=== PATIENT | female | born 1950 | race Caucasian/White ===

== ENCOUNTER 2017-04-07 10:28 | Inpatient (IN) | payer OTHER ==
[2017-03-06 09:58] VITALS: BMI 37.0
--- NOTE | 2017-03-06 10:37 | PAT Medication Instructions ---
Service Date Mar 06, 2017. Current Home Medication List Cyanocobalamin (Vitamin B12 500MCG), 1,000 MCG PO QAM Hydrochlorothiazide (Hctz), 25 MG PO QAM Krill Oil (Megared [place]-3 Krill Oil 500 mg), 1 TAB PO NOON Metoprolol Succ (Toprol Xl) (Toprol-Xl), 50 MG PO NOON Multiple Vitamins W/ Minerals (Hair Skin and Nails Formu), 1 TAB PO TID Naproxen (Aleve), 440 MG PO NOON Omeprazole (Prilosec), 20 MG PO QAM Simvastatin (Zocor), 5 MG PO QPM [Vitamin D], 400 UNITS PO QAM Medication Instructions For Your Scheduled Surgery - Check with surgeon for instructions: Naproxen (Aleve), 440 MG PO NOON - Hold the following medications 2 weeks prior to surgery: Krill Oil (Megared [place]-3 Krill Oil 500 mg), 1 TAB PO NOON - Continue as directed: Metoprolol Succ (Toprol Xl) (Toprol-Xl), 50 MG PO NOON - Hold the following medications the morning of surgery: [Vitamin D], 400 UNITS PO QAM Multiple Vitamins W/ Minerals (Hair Skin and Nails Formu), 1 TAB PO TID Cyanocobalamin (Vitamin B12 500MCG), 1,000 MCG PO QAM Hydrochlorothiazide (Hctz), 25 MG PO QAM - Take the following medications the morning of surgery with a sip of water: Omeprazole (Prilosec), 20 MG PO QAM - Take the following medications as scheduled the night before surgery: Simvastatin (Zocor), 5 MG PO QPM If you have any questions please call us at [phone] or [phone] or [phone]
[2017-03-06 12:07] LABS: BASO % 0.6 %; BASO ABS # 0.03 K/uL (0-0.2); COMPLETE YES; EOS % 4.5 %; HEMATOCRIT 45.3 % (37-47); IG% 0.2 %; LYMPH % 34.5 %; LYMPH ABS # 1.67 K/uL (1.2-3.4); MEAN CELL VOLUME 83.7 fL (80-100); MEAN CORPUSCULAR HEMOGLOBIN 27.2 pg (25-34); MEAN CORPUSCULAR HGB CONC 32.5 g/dl (32-36); MEAN PLATELET VOLUME 10.2 fL (7.4-10.4); MONO % 9.3 %; NEUT % 50.9 %; PLATELET COUNT 171 K/uL (130-400); RED BLOOD COUNT 5.41 M/uL (4.2-5.4); WHITE BLOOD COUNT 4.84 K/uL (4.8-10.8)
[2017-03-06 12:09] LABS: PROTHROMBIN TIME (PATIENT) 10.8 SECONDS (9.0-12.0)
[2017-03-06 12:21] LABS: BLOOD UREA NITROGEN 20 mg/dl (7-18); BUN/CREATININE RATIO 23.7 (10-20); CARBON DIOXIDE 34 mmol/L (21-32); CHLORIDE 104 mmol/L (98-107); CREATININE 0.85 mg/dl (0.60-1.20); GLUCOSE 88 mg/dl (70-99); SODIUM 142 mmol/L (136-145)
[2017-03-06 12:22] LABS: C-REACTIVE PROTEIN < 0.29 mg/dl (0-0.29)
--- NOTE | 2017-03-27 22:31 | HISTORY & PHYSICAL EXAMINATION ---
DATE OF ADMISSION: 04/07/2017 CHIEF COMPLAINT: Left knee pain. HISTORY OF PRESENT ILLNESS: A 67-year-old female from [place] who presents for surgical treatment of her left knee. She has a long history of left knee pain and discomfort. She had her left knee scope done in [place] about 10 years ago. It helped for a brief period of time. Over the past several years, she has developed increased pain and discomfort in this left knee. 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 She has been through extensive conservative treatment. She had steroid shots as well as oral medicines. Pain has become more debilitating and limiting her ability to work. She has trouble standing for any prolonged period of time. It is global pain both medially and laterally. She would like to have her left knee replaced. Of note, the patient has a history of right hip replacement done by Dr. Wolff in 2012, complicated by superficial MRSA infection. She was treated with I&D and antibiotics without recurrence. It is still relatively well. PAST MEDICAL HISTORY: 1. Elevated cholesterol. 2. Hypertension. 3. Gastroesophageal reflux disease. 4. Obesity with a BMI of 37.2. PREVIOUS SURGERIES: Include: 1. Left knee scoped 10 years ago. 2. Carpal tunnel release. 3. Colon resection. 4. Cholecystectomy. 5. Total hip placement done in . 6. Laparotomy. ALLERGIES: TO PENICILLIN WHICH CAUSES YEAST INFECTION. NO TRUE ANAPHYLACTIC REACTION. CURRENT MEDICINES: Include: 1. Hydrochlorothiazide 25 mg a day. 2. Metoprolol 50 mg a day. 3. Omeprazole 20 mg. 4. Simvastatin 5 mg. 5. Vitamin D 400 international units a day. 6. Vitamin B12 1000 mcg a day. 7. MegaRed 500 mg once a day. 8. Aleve 2 tablets twice a day. SOCIAL HISTORY: Significant for a 67-year-old female patient from [place]. She is . Three children. Does not drink. Works as a POLITICAL ANALYST. FAMILY HISTORY: Significant for heart disease and diabetes. REVIEW OF SYSTEMS: Negative for diabetes. Denies any chest pain or shortness of breath. No history of DVT or PE. She does have this history of questionable MRSA infection. PHYSICAL EXAMINATION: GENERAL: Reveals a healthy, pleasant middle-aged female, looks to be in pretty good health. HEENT: Benign. NECK: Supple, no lymphadenopathy. LUNGS: Clear to auscultation. HEART: Regular rate and rhythm. ABDOMEN: Soft, nontender, nondistended. EXTREMITIES: Grossly neurovascularly intact except as follows: Examination of the left knee reveals the patient walks with a waddling gait. She clearly limps on her left side. She has got varus alignment to her knees. She has varus thrust with weightbearing. Range of motion is 5-120. Motor strength is intact and equal to the opposite side. No instability. No pain with hip motion. NEUROLOGIC: She is neurologically intact. X-RAYS: X-rays of the left knee reveal advanced left knee DJD. She has got complete loss of her medial joint space. She has tibiofemoral subluxation and subchondral sclerosis. ASSESSMENT: A 67-year-old female status post right total hip replacement complicated by a possible MRSA infection, with advanced left knee degenerative joint disease. She has failed conservative treatment and would like to have her left knee replaced. PLAN: We are going to take her to the operating room and do left total knee replacement. The risks and benefits of this procedure were explained to the patient including but not limited to DVT, PE, , infection, neurological injury, vascular injury, bleeding problem, pain, limited range of motion, stiffness, failure to relieve symptoms, incomplete relief of symptoms, need for further surgery in the future, fracture, leg length inequality, nerve palsy, persistent pain, need for blood transfusion, etc. The patient understands and desires to proceed. Informed consent was obtained. We did get a sed rate and C-reactive protein and those are both normal. Due to the history of MRSA infection, we will likely give her Ancef as well as vancomycin preoperatively. We may put the vancomycin in her cement as well due to her large size and increased risk of infection. I did talk about holding Aleve 10 days preop and make sure she takes the metoprolol. She takes that at night, she will take it the night before surgery. We will give her Ancef preoperatively as her reaction to penicillin is not true anaphylaxis. As far as discharge plans, she is planning to be discharged home using some home health.
[2017-04-07] VITALS (8 sets, daily range): BP systolic 106–156; BP diastolic 65–97; PULSE 58–75; TEMP 36.2–36.9; O2SAT 95–100; Ht 160 cm; Wt 93.0 kg
[~2017-04-07] VITALS: Ht 160 cm; Wt 93.0 kg
[~2017-04-07 10:28] MED LIST: ACETAMINOPHEN 500 MG TAB PO SCH; BUPIVACAINE 0.25% 30 ML VIAL ONE; BUPIVACAINE 0.5 % 5 MG/1 ML PF 10ML VIAL ONE; BUPIVACAINE LIPOSOME 266 MG, BUPIVACAINE/EPINEPHRINE INJ 50 ML, SODIUM CHLORIDE 0.9% PF... INFIL SCH; CYAN500T13 PO; FAMOTIDINE 20 MG TAB PO SCH; GABAPENTIN 300 MG CAP PO SCH; HYDR25TA4 PO; KRIL1CAP18 PO; LACTATED RINGER'S 1000ML IV SCH; LACTATED RINGER'S 500 ML IV SCH; METO50TA7 PO; METOCLOPRAMIDE HCL 10 MG TAB PO SCH; MULT-1018 PO; NAPR1TAB9 PO; PRLSR20 PO; SCOPOLAMINE 1.5 MG TDSY TD SCH; SIMV5TAB2 PO; VANCOMYCIN INJ 1,500 MG in SODIUM CHLORIDE 0.9% 500ML 500 ML IV SCH; VITAMIN D PO
[2017-04-07] MEDS ORDERED: HYDR-5688 PO (11:05)
--- NOTE | 2017-04-07 11:19 | History & Physical Bridge Note ---
H&P Re-Evaluation Bridge Note: I have examined the patient, reviewed the History & Physical and in the interval since the performance of the History & Physical I have noted the following changes of clinical significance: No changes noted
[2017-04-07] MEDS ORDERED: MIDAZOLAM HCL 1 MG/ML 2ML VIAL ONE (12:12)
[2017-04-07] MEDS ORDERED: SODIUM CHLORIDE 0.9% PF 50 ML VIAL ONE (13:25)
[2017-04-07] MEDS ORDERED: BUPIVACAINE LIPOSOME 1/3% 266 MG/20 ML VIAL INFIL ONE (13:25)
[2017-04-07] MEDS ORDERED: BACITRACIN 50000 UNIT VIAL ONE (13:25)
[2017-04-07] MEDS ORDERED: BUPIVACAINE/EPINEPHRINE 0.25% 1:200,000 30 ML VIAL ONE (13:25)
[2017-04-07] MEDS ORDERED: VANCOMYCIN HCL 1000MG/20ML VIAL ONE (13:26)
[2017-04-07] MEDS ORDERED: HYDROmorphone INJ 2 MG/ML SYR/VIAL IV PRN (13:30)
[2017-04-07] MEDS ORDERED: KETOROLAC TROMETHAMINE 30 MG/ML VIAL IV. PRN (13:30)
[2017-04-07] MEDS ORDERED: ATROPINE SULFATE 0.1 MG/ML 5ML SYR IV PRN (13:30)
[2017-04-07] MEDS ORDERED: PHENYLEPHRINE 100MCG/ML 5ML SYR IV PRN (13:30)
[2017-04-07] MEDS ORDERED: EpHEDrine SULFATE INJ 50 MG/ML AMP IV PRN (13:30)
[2017-04-07] MEDS ORDERED: ONDANSETRON INJ 2 MG/ML 2 ML VIAL IV PRN ×2 (13:30→16:00)
[2017-04-07] MEDS ORDERED: CEFAZOLIN SOD 1 GM VIAL ONE (13:59)
[2017-04-07] MEDS ORDERED: TRANEXAMIC ACID AMP 1,000 MG in NSS 100ML IV SCH (14:00)
[2017-04-07] MEDS ORDERED: NURSING VERBAL MED ORDER ONE (14:00)
[2017-04-07] MEDS ORDERED: LIDOCAINE HCL 2% 2 ML VIAL (20MG/ML) ONE (14:00)
[2017-04-07] MEDS ORDERED: PROPOFOL IV EMULSION 10 MG/ML 20 ML VIAL IV ONE (14:00)
--- NOTE | 2017-04-07 15:31 | [facility] Post Operative Brief Note ---
Immediate Operative Summary Operative Date Apr 07, 2017. Pre-Operative Diagnosis Left Knee Degenerative Joint Disease Post-Operative Diagnosis Same as preop Procedure(s) Performed Left Total Knee Arthroplasty Surgeon Dr. Nunn Morning Show Host Surgeon(s) Fabian Valdez PA-C Estimated Blood Loss 50ml Findings Left Knee DJD Fluids (cc crystalloids) 1500 cc Specimens A. Left Knee Bone and Tissue Drains None Anesthesia Spinal Complication(s) None Disposition Recovery Room / PACU
[2017-04-07] MEDS ORDERED: HYDROmorphone INJ 0.5 MG/0.5 ML SYR IV PRN (15:45)
[2017-04-07] MEDS ORDERED: METOCLOPRAMIDE HCL INJ 5 MG/ML 2 ML VIAL IV PRN (16:00)
[2017-04-07] MEDS: CHECK SCOPOLAMINE PATCH PLACEMENT SCH ×2 (16:00→23:45)
[2017-04-07] MEDS ORDERED: DiphenhydrAMINE HCL 50 MG/ML VIAL IV PRN (16:00)
[2017-04-07] MEDS ORDERED: MAGNESIUM HYDROXIDE SUSP 30 ML UDC PO PRN (16:00)
[2017-04-07] MEDS ORDERED: ZOLPIDEM TARTRATE 5 MG TAB PO PRN (16:00)
[2017-04-07] MEDS ORDERED: BISACODYL 10 MG SUPP PR PRN (16:00)
[2017-04-07] MEDS ORDERED: SILVER SULFADIAZINE 1% CR 50 GM JAR EXT PRN (16:00)
[2017-04-07] MEDS ORDERED: ALUMINUM/MAGNESIUM/SIMETH (MAALOX MAX) 30 ML UDC PO PRN (16:00)
--- NOTE | 2017-04-07 16:09 | DIAGNOSTIC IMAGING REPORT ---
LEFT KNEE 1 OR 2 VIEWS ROUTINE CLINICAL HISTORY: Postoperative study. Degenerative arthritis. COMPARISON: 02/13/2017 DISCUSSION: There are postsurgical changes of a total left knee arthroplasty and patellar resurfacing. The femoral and tibial components appear well seated. There are overlying skin carmen. There is air in the soft tissues consistent with the history of recent surgery. IMPRESSION: Postsurgical changes of a total left knee arthroplasty. Electronically signed by: Yoel Paige M.D. 04/07/2017 4:08 PM Dictated Date/Time: 04/07/2017 4:07 PM
--- NOTE | 2017-04-07 16:10 | Anesthesiology Progress Note ---
Anesthesia Post Op Note Date & Time Apr 07, 2017 at 16:10 Vital Signs Pain Intensity: 0 Vital Signs Past 12 Hours Date Time Temp Pulse Resp B/P (MAP) Pulse Ox O2 Delivery O2 Flow Rate FiO2 04/07/17 16:05 36.4 64 14 113/69 99 Nasal Cannula 2 04/07/17 15:55 63 14 120/63 98 Nasal Cannula 2 04/07/17 15:45 64 14 108/71 96 Nasal Cannula 2 04/07/17 15:37 36.2 63 19 109/66 98 Nasal Cannula 2 04/07/17 11:16 36.8 64 18 156/97 97 Room Air Notes Mental Status: alert / awake / arousable, participated in evaluation Pt Amnestic to Procedure: Yes Nausea / Vomiting: adequately controlled Pain: adequately controlled Airway Patency, RR, SpO2: stable & adequate BP & HR: stable & adequate Hydration State: stable & adequate Anesthetic Complications: no major complications apparent
[2017-04-07] MEDS: OXYCODONE HCL IR 5 MG TAB (IMMEDIATE RELEASE) PO PRN (17:09)
[2017-04-07] MEDS: D5W AND 1/2NSS + 20MEQ KCL 1,000 ML IV SCH (17:38)
[2017-04-07] MEDS: FERROUS GLUCONATE 324 MG TAB PO SCH (17:39)
[2017-04-07] MEDS: KETOROLAC TROMETHAMINE 15 MG/ML VIAL IV. SCH ×2 (17:39→23:46)
[2017-04-07] MEDS: TAPENTADOL ER 50 MG TABCR PO SCH (20:32)
[2017-04-07] MEDS: CEFAZOLIN IV 2,000 MG in DEXTROSE 5% 50ML 50 ML IV SCH (20:32)
[2017-04-07] MEDS: SIMVASTATIN 5 MG TAB PO SCH (20:33)
[2017-04-07] MEDS: ASPIRIN 325 MG ECTAB PO SCH (20:34)
[2017-04-07] MEDS: DOCUSATE SODIUM 100 MG CAP PO SCH (20:36)
[2017-04-07] MEDS: SENNA 8.6 MG TAB PO SCH (20:36)
[2017-04-07] MEDS ORDERED: TRANEXAMIC ACID INJ 1,000 MG in SODIUM CHLORIDE 0.9% 100ML 100 ML IV ONE (21:30)
[2017-04-07] MEDS: ACETAMINOPHEN 500 MG TAB PO SCH (21:48)
[2017-04-08] MEDS ORDERED: VANCOMYCIN INJ 1,400 MG in SODIUM CHLORIDE 0.9% 500ML 500 ML IV ONE (03:00)
[2017-04-08 03:13] VITALS: BP 105/62; PULSE 71; TEMP 36.9; O2SAT 94
[2017-04-08] MEDS: CEFAZOLIN IV 2,000 MG in DEXTROSE 5% 50ML 50 ML IV SCH (03:56)
[2017-04-08] MEDS: D5W AND 1/2NSS + 20MEQ KCL 1,000 ML IV SCH ×2 (03:56→12:37)
[2017-04-08 05:55] LABS: HEMATOCRIT 37.9 % (37-47); MEAN CELL VOLUME 82.9 fL (80-100); MEAN CORPUSCULAR HEMOGLOBIN 27.1 pg (25-34); MEAN CORPUSCULAR HGB CONC 32.7 g/dl (32-36); MEAN PLATELET VOLUME 9.9 fL (7.4-10.4); PLATELET COUNT 134 K/uL (130-400); RED BLOOD COUNT 4.57 M/uL (4.2-5.4); WHITE BLOOD COUNT 5.93 K/uL (4.8-10.8)
[2017-04-08 06:28] LABS: BUN/CREATININE RATIO 11.8 (10-20); CALCIUM 7.8 mg/dl (8.5-10.1); CREATININE 1.1 mg/dl (0.60-1.20); POTASSIUM 3.5 mmol/L (3.5-5.1)
[2017-04-08] MEDS: ACETAMINOPHEN 500 MG TAB PO SCH ×3 (06:36→21:49)
[2017-04-08] MEDS: KETOROLAC TROMETHAMINE 15 MG/ML VIAL IV. SCH ×3 (06:36→18:34)
[2017-04-08] MEDS: CHECK SCOPOLAMINE PATCH PLACEMENT SCH ×2 (08:00→16:00)
[2017-04-08 08:09] VITALS: BP 114/70; PULSE 68; TEMP 36.9; O2SAT 94
--- NOTE | 2017-04-08 08:17 | Progress Note ---
Orthopedic SOAP Note Subjective Date of Service: Apr 08, 2017. Post OP Day: POD #1 Left TKR Reports: feeling well, pain controlled w PO medications Additional Notes: No chest pain or shortness of breath. Pain controlled. Objective calves soft nontender, N/V intact, capillary refill less than 2 sec., dressing C /D/I, A&O x3, toes mobile, CMS intact Date Time Temp Pulse Resp B/P (MAP) Pulse Ox O2 Delivery O2 Flow Rate FiO2 04/08/17 08:09 36.9 68 18 114/70 (85) 94 Room Air 04/08/17 03:13 36.9 71 16 105/62 (76) 94 Room Air 04/07/17 23:45 Room Air 04/07/17 23:23 36.9 73 16 109/67 (81) 95 Room Air 04/07/17 20:23 96 Room Air 04/07/17 19:25 36.8 69 18 111/66 (81) 98 Nasal Cannula 2.0 04/07/17 18:17 36.7 75 18 110/67 (81) 97 Nasal Cannula 2.0 04/07/17 17:18 36.5 58 18 120/75 (90) 100 Nasal Cannula 2.0 04/07/17 16:45 36.6 67 16 109/70 (83) 100 Nasal Cannula 2.0 04/07/17 16:15 98 Nasal Cannula 2.0 04/07/17 16:15 36.2 62 16 106/65 (79) 98 Nasal Cannula 2.0 04/07/17 16:15 98 Nasal Cannula 2.0 04/07/17 16:05 36.4 64 14 113/69 99 Nasal Cannula 2 04/07/17 15:55 63 14 120/63 98 Nasal Cannula 2 04/07/17 15:45 64 14 108/71 96 Nasal Cannula 2 04/07/17 15:37 36.2 63 19 109/66 98 Nasal Cannula 2 04/07/17 11:16 36.8 64 18 156/97 97 Room Air Laboratory Results 24 Hours: Test 04/08/17 05:00 Hematocrit 37.9 % Hemoglobin 12.4 g/dL Assessment POD #1 - Left TKR doing well. Pain controlled and N/V intact. Plan 1) PT/OT - LEft TKR Protocol 2) Pain control - doing well with current pain regimine 3) DVT Prophylaxis - thigh high TEDs + SCDs + ECASA 4) Disposition - plan to d/c to home with home health once adequately recovered.
[2017-04-08] MEDS ORDERED: MULTIVITAMIN TAB PO SCH (09:00)
[2017-04-08] MEDS ORDERED: PANTOprazole SOD 40 MG TAB PO SCH (09:00)
[2017-04-08] MEDS: FERROUS GLUCONATE 324 MG TAB PO SCH ×3 (09:22→18:34)
[2017-04-08] MEDS: ASPIRIN 325 MG ECTAB PO SCH ×2 (09:22→21:48)
[2017-04-08] MEDS: CEROVITE ADV FORMULA TAB PO SCH (09:23)
[2017-04-08] MEDS: HYDROCHLOROTHIAZIDE 25 MG TAB PO SCH (09:23)
[2017-04-08] MEDS: TAPENTADOL ER 50 MG TABCR PO SCH ×2 (09:23→21:47)
[2017-04-08] MEDS: METOPROLOL SUCC 50MG EXT REL TAB PO SCH (09:24)
[2017-04-08] MEDS: PANTOprazole SOD 40 MG TAB PO SCH (09:24)
[2017-04-08] MEDS: CHOLECALCIFEROL 400 INTER.UNIT TAB PO SCH (09:25)
[2017-04-08] MEDS: CYANOCOBALAMIN 500 MCG TAB (VIT B-12) PO SCH (09:25)
[2017-04-08] MEDS: DOCUSATE SODIUM 100 MG CAP PO SCH ×2 (09:25→21:47)
[2017-04-08] MEDS: OXYCODONE HCL IR 5 MG TAB (IMMEDIATE RELEASE) PO PRN (09:26)
[2017-04-08 12:00] VITALS: BP 119/72; PULSE 64; TEMP 36.7; O2SAT 97
[2017-04-08 13:24] VITALS: BP 110/74; PULSE 88; O2SAT 98
[2017-04-08 15:09] VITALS: BP 101/63; PULSE 67; TEMP 36.8; O2SAT 96
[2017-04-08] MEDS ORDERED: RXC5 PO (21:28)
[2017-04-08] MEDS ORDERED: ASPEC325 PO (21:28)
[2017-04-08] MEDS ORDERED: ACET-24 PO (21:28)
[2017-04-08] MEDS ORDERED: MORP-157 PO (21:28)
--- NOTE | 2017-04-08 21:31 | Discharge Instructions ---
Discharge Instructions Date of Service Apr 08, 2017. Admission Reason for Admission: Left Knee Degenerative Joint Disease Discharge Discharge Diagnosis / Problem: Left Knee Replacement Discharge Goals Goal(s): Decrease discomfort, Improve function, Increase independence, Improve disease control, Therapeutic intervention Activity Recommendations Activity Limitations: per Instructions/Follow-up section Weightbearing Status: Left weightbearing . Instructions / Follow-Up Instructions / Follow-Up ACTIVITY RECOMMENDATIONS: Physical Therapy: * You will go to physical therapy three times each week for four to six weeks after your surgery in order to regain your knee range of motion and to retrain your knee to work properly. * It is just as important to make sure you are getting your knee perfectly straight as it is to regain your knee bend. * Taking a pain pill an hour before therapy can help you have a more productive and comfortable therapy session. Home Exercise: * You were shown a series of exercises (heel props, heel slides, etc.) in the hospital. Do these exercises three to four times each day including the exercises you were shown in physical therapy. Walking: * Get up and walk several times each day. For the first four weeks, try not to stand or walk for more than one hour at a time. If you do stand or walk for more than one hour, you will not hurt anything, but your knee and leg will likely swell. * As you feel comfortable, you may change from the walker or crutches to a cane and then to independent walking. MEDICATIONS: New Medicine: * You will likely be taking one or more of these medications: 1. MS Contin - A long-acting pain medication. Take 1 tablet twice a day for the first ten days to decrease your baseline level of pain. 2. Oxycodone - A quick and shorter-acting pain medication. Take one to two tablets every four to six hours to lessen your pain. 3. Aspirin - Thins your blood to lessen the chance of forming a blood clot. * The most common side effects of pain medicine and iron are nausea and constipation. If nausea or constipation is too much of a problem or if you have any questions about your new medicines or doses, call [facility] at [phone]. We will try to help you manage these issues. VERY IMPORTANT TO READ AND REVIEW" Pain: * The immediate post-operative period after knee replacement surgery is often quite painful. * You are given a prescription for pain medicine. You should take it, as directed, when you need it, especially before physical therapy and before going to bed. Pain that interferes with sleep is very common and can last several months. * You will likely need pain medicine for the first four to six weeks. It will not stop all of the pain. The pain will lessen and as you feel better, you may change to milder pain medicine such as Tylenol. * The most common side effects of pain medicine are nausea and constipation, so don't take more than you need. SPECIAL CARE INSTRUCTIONS: TEDs/Elastic Stockings: * The white elastic stockings help limit swelling and prevent blood clots from forming in your legs. The more you wear them, the more they work. * Wear them for six weeks after knee replacement surgery and four weeks after partial knee replacement. Prevention of Infection: * Take antibiotics one hour before any dental cleaning, dental work, urological procedure, gastrointestinal procedure or any invasive surgery in order to prevent your new joint from getting infected. * You may get the antibiotics from the doctor performing the procedure or you may call our office at before and we will call in a prescription to the pharmacy of your choice. Things to Watch For: * Drainage from the incision site that occurs more than one week after your surgery. * Severely increased knee/leg pain or swelling. * Increased redness at the incision site. * Fever above 102 degrees Fahrenheit. * Unusual chest pain or shortness of breath. * Unusual pain or burning with urination. Call [facility] at with any of the above problems or if you have any questions about your medicines or recovery. FOLLOW UP VISIT: Make an appointment to see your doctor for approximately two weeks after surgery for a progress check and staple removal by calling the office at . Current Hospital Diet Patient's current hospital diet: Regular Diet Discharge Diet Recommended Diet: Regular Diet Procedures Procedures Performed: Left Total Knee Arthroplasty Pending Studies Studies pending at discharge: no Medical Emergencies . Who to Call and When: Medical Emergencies: If at any time you feel your situation is an emergency, please call [phone] immediately. . Non-Emergent Contact Non-Emergency issues call your: Surgeon . "Provider Documentation" section prepared by Gabriel Nunn. . VTE Core Measure Inpt VTE Proph given/why not?: Other Anticoagulation, T.E.D. Stockings, SCD's
[2017-04-08] MEDS: SENNA 8.6 MG TAB PO SCH (21:47)
[2017-04-08] MEDS: SIMVASTATIN 5 MG TAB PO SCH (21:47)
[2017-04-08 22:55] VITALS: BP 101/62; PULSE 67; TEMP 36.6; O2SAT 96
[2017-04-09] MEDS: CHECK SCOPOLAMINE PATCH PLACEMENT SCH
[2017-04-09] MEDS: KETOROLAC TROMETHAMINE 15 MG/ML VIAL IV. SCH ×2 (00:46→05:40)
[2017-04-09] MEDS: ACETAMINOPHEN 500 MG TAB PO SCH (05:40)
[2017-04-09 06:15] VITALS: BP 132/77; PULSE 67; TEMP 36.9; O2SAT 97
--- NOTE | 2017-04-09 08:40 | Progress Note ---
Orthopedic SOAP Note Subjective Date of Service: Apr 09, 2017. Post OP Day: POD #2 - Left TKR Reports: feeling well, pain controlled w PO medications Objective calves soft nontender, N/V intact, dressing C/D/I, toes mobile, CMS intact Small amount of bloody drainage on dressing. Date Time Temp Pulse Resp B/P (MAP) Pulse Ox O2 Delivery O2 Flow Rate FiO2 04/09/17 06:15 36.9 67 16 132/77 (95) 97 Room Air 04/08/17 22:55 36.6 67 14 101/62 (75) 96 Room Air 04/08/17 20:00 Room Air 04/08/17 15:09 36.8 67 18 101/63 (76) 96 Room Air 04/08/17 13:24 88 98 04/08/17 12:00 36.7 64 18 119/72 (88) 97 Room Air 04/08/17 09:15 Room Air Assessment POD #2 - Left TKR doing well. Pain controlled and N/V intact. Plan 1) PT/OT - LEft TKR Protocol 2) Pain control - doing well with current pain regimine 3) DVT Prophylaxis - thigh high TEDs + SCDs + ECASA 4) Disposition - plan to d/c to home with home health once adequately recovered.
[2017-04-09] MEDS: CHOLECALCIFEROL 400 INTER.UNIT TAB PO SCH (09:28)
[2017-04-09] MEDS: CYANOCOBALAMIN 500 MCG TAB (VIT B-12) PO SCH (09:28)
[2017-04-09] MEDS: PANTOprazole SOD 40 MG TAB PO SCH (09:29)
[2017-04-09] MEDS: TAPENTADOL ER 50 MG TABCR PO SCH (09:29)
[2017-04-09] MEDS: METOPROLOL SUCC 50MG EXT REL TAB PO SCH (09:29)
[2017-04-09] MEDS: ASPIRIN 325 MG ECTAB PO SCH (09:29)
[2017-04-09] MEDS: FERROUS GLUCONATE 324 MG TAB PO SCH (09:29)
[2017-04-09] MEDS: CEROVITE ADV FORMULA TAB PO SCH (09:29)
[2017-04-09] MEDS: DOCUSATE SODIUM 100 MG CAP PO SCH (09:29)
[2017-04-09] MEDS: HYDROCHLOROTHIAZIDE 25 MG TAB PO SCH (09:29)
[2017-04-09 09:45] VITALS: BP 132/77; PULSE 67; TEMP 36.9; O2SAT 97
[2017-04-09] MEDS: OXYCODONE HCL IR 5 MG TAB (IMMEDIATE RELEASE) PO PRN (09:58)
--- NOTE | 2017-04-11 15:31 | Discharge Summary ---
Orthopedic Discharge Summary Admission Date/Reason Apr 07, 2017 at 11:02 Left Knee Degenerative Joint Disease. Discharge Date/Disposition Apr 09, 2017 Home with services Diagnosis Principal Diagnosis: LEFT KNEE DJD Secondary Diagnoses/Problems: 1. Elevated cholesterol. 2. Hypertension. 3. Gastroesophageal reflux disease. 4. Obesity with a BMI of 37.2. Procedure(s) Performed LEFT TKA Medication Reconciliation New Medications: Morphine Cont Rel (Ms Contin) 15 Mg Tab 15 MG PO Q12 for 10 Days, #20 TAB Take for 10 days to lessen pain. Acetaminophen (Sb Non-Aspirin Extra Stre) 500 Mg Tab 1000 MG PO Q8H for 30 Days, #180 TAB Take 3 times per day to lessen pain. Aspirin (Aspirin) 325 Mg Ectab 325 MG PO BID for 45 Days, #90 Take to prevent blood clots. Oxycodone HCl (Oxycodone HCl) 5 Mg Tab 5-10 MG PO Q6H PRN for Pain for 30 Days, #60 TAB Take as needed for Pain. Continued Medications: Cyanocobalamin (Vitamin B12 500MCG) 500 Mcg Tab 1000 MCG PO QAM, TAB Hydrochlorothiazide (Hctz) 25 Mg Tab 25 MG PO QAM, TAB Krill Oil (Megared [place]-3 Krill Oil 500 mg) 1 Cap Cap 1 TAB PO NOON Metoprolol Succ (Toprol Xl) (Toprol-Xl) 50 Mg Tabcr 50 MG PO NOON, #30 TAB Multiple Vitamins W/ Minerals (Hair Skin and Nails Formu) 1 Tab Tab 1 TAB PO TID Naproxen (Aleve) 220 Mg Tab 440 MG PO NOON, TAB Omeprazole (Prilosec) 20 Mg Capcr 20 MG PO QAM, CAP Simvastatin (Zocor) 5 Mg Tab 5 MG PO QPM, TAB [Vitamin D] () 400 UNITS PO QAM Discontinued Medications: Hydrocodone/Acetaminophen 5MG/325MG (Industry 5MG/325MG) Tab 1 TAB PO TID PRN for Pain for 30 Days, #90 TAB PRN PAIN Admission Physical Exam As per Admitting History & Physical. Hospital Course ELIAN WAS ADMITTED 03/08/17 AND UNDERWENT TKA. SHE TOLERATED THE PROCEDURE WELL. NO COMPLICATIONS. SHE WAS TRANSFERRED TO THE PACU POST OP AND LATER TO THE ORTHOPEDIC FLOOR FOR FURTHER CARE. SHE WAS GIVEN ANCEF FOR ANTIBIOTIC PROPHYLAXIS. LILI'S, SCD'S, AND ASPIRIN FOR DVT PROPHYLAXIS. HER H/H AND VITAL SIGNS WERE MONITORED DURING HER HOSPITAL STAY AND REMAINED STABLE. SHE DID NOT REQUIRE ANY BLOOD TRANSFUSION. THERE WERE NO COMPLICATIONS. BY POD #2 SHE WAS TOLERATING A GENERAL DIET. PAIN WAS CONTROLLED WITH ORAL PAIN MEDICINES. SHE WAS PARTICIPATING IN PT AND HAD NO S/S OF DVT. ON POD#2 SHE WAS DISCHARGED HOME WITH HOME HEALTH. GIVEN PRINTED DISCHARGE INSTRUCTIONS WELL PRESCRIPTIONS ABOVE. CONTINUE PT, WBAT. LILI'S AND ASPIRIN FOR DVT PROPHYLAXIS. FOLLOW UP IN 10-12 DAYS OR SOONER IF THERE ARE PROBLEMS OR CONCERNS. Discharge Instructions Please refer to the electronic Patient Visit Report (Discharge Instructions) for additional information.
--- NOTE | 2017-04-12 10:18 | OPERATIVE REPORT ---
PREOPERATIVE DIAGNOSIS: Left knee DJD. POSTOPERATIVE DIAGNOSIS: Same. SURGEON: Dr. Gabriel Nunn. TWINE WINDER: Fabian Valdez PA-C. PROCEDURE PERFORMED: Left cemented posterior stabilized total knee arthroplasty. COMPLICATIONS: None. ESTIMATED BLOOD LOSS: 50 cc. FLUID REPLACEMENT: 1500 cc crystalloid fluid replacement. ANESTHESIA: Spinal with adductor canal block. DRAINS: None. SPECIMEN: Left knee sent for pathology. TOURNIQUET TIME: 62 minutes at 300 mmHg. OPERATIVE INDICATIONS: Patient is a 67-year-old female who has had a 10-plus year history of left knee pain and discomfort. She has been through extensive conservative treatment without adequate relief. Really starting to limit her function. She elected to proceed with a left total knee arthroplasty. Of note, the patient had a history of a right total hip replacement done in [place]. There was some understanding on her part that she had an MRSA infection postoperatively and underwent and I&D and recovered nicely. As a result we gave her both Ancef and Vancomycin preoperatively. OPERATIVE FINDINGS: Operative findings revealed advanced left knee DJD. She had grade 4 [id number] disease of the medial femoral condyle and medial tibial plateau with eburnation of the medial femoral condyle as well as the anterior medial tibial plateau. She had a fixed varus deformity to her knee and moderate to large effusion. The lateral and patellofemoral compartments were fairly well preserved. OPERATIVE IMPLANTS: Operative implants consisted of: 1. A Biomet Vanguard size 65 left posterior stabilized femoral component. 2. A Biomet size 67 tibial tray. 3. 10 mm posterior stabilized polyethylene insert. 4. 28 x 8 all poly patella. OPERATIVE PROCEDURE: Patient was taken to the operating room and identified and placed on the operating table in the supine position. All contact areas were appropriately padded. IV antibiotics were provided by the anesthesia team. A spinal anesthetic and adductor canal block had been provided in the holding area. Neil catheter was placed in a sterile fashion. The left thigh tourniquet was then placed and the left lower extremity was prepped and draped in the usual sterile fashion. The left leg was elevated and exsanguinated with Esmarch and tourniquet was placed at 300 mmHg. An anterior approach to the left knee was then performed through a longitudinal incision and centered over the patella. Sharp dissection was carried through the subcutaneous tissues down to the level of the extensor mechanism. A medial parapatellar arthrotomy incision was made. Some subperiosteal dissection was carried out medially. The fat pad was resected from beneath the patellar tendon. The lateral patellofemoral ligament was released. The patella was everted and the knee was flexed. The osteophytes were taken off the distal femur. The ACL and PCL were released from the distal femur and the tibia subluxated anteriorly. The external tibial alignment jig was then placed in the anterior face of the tibia and adjusted 16 mm medially. Proximal tibial cut was made to move out 1 mm of bone from the most deficient aspect of the medial tibial plateau. There was quite a bit of tibial plateau wear. Some osteophytes were taken off medial and posteromedially. The tibia was sized to a size 67. Attention was then drawn to the femur. The distal femur was entered with a sharp drill bit. The intramedullary canal was suctioned. A left 5 degree valgus cutting guide was placed. The distal femoral cutting block was pinned in place. The distal femoral cut was made to take an additional 3 mm of bone off the distal femur. The femur was then sized to a size 65. We did downsize this slightly. The AP cutting block was pinned parallel to the epicondylar axis which was 5 degrees of external rotation. The anterior cut, anterior chamfer cut, posterior cut, and posterior chamfer cuts were made. Boxcutting guide was placed and adjusted slightly lateral and boxcut was made. The knee was flexed. The remnants of the medial and lateral menisci were excised. The osteophytes were taken off the posterior aspect of the femur. Trial femoral component was placed. The tibial tray was pinned to maximum external rotation and drilled with stem punch. We used the great defect in the proximal tibia for the tibial tray. The knee was trialed and a 10 mm insert fit most appropriately. Attention was then drawn to the patella. The patella was cleaned of all soft tissues. Patellar thickness measured 22 mm in thickness. It was cut down to 13. It was sized to a size 28 patella. Lug holes were drilled for a 28 patella. The lateral ostephyte was removed. Patellar button was placed. The knee was taken through range of motion. The patella tracked relatively well with no-thumbs test. There was some slight tilt to the patella. I elected to accept this. All trial components were removed. A bone plug was placed in the distal femur to eliminate blood loss. A double batch of Palacos-G cement was mixed. I did add an additional gram of Vancomycin due to her history of MRSA infection in the past. A left size 65 posterior stabilized femoral component, size 67 tibial tray, a 10 mm posterior stabilized polyethylene insert, and a 28 x 8 all poly patella were then cemented into place. The knee was brought out into full extension until cement hardened. A final cement check was then performed. Pericapsular tissues were then injected with a total of 100 cc of combination of 20 cc of Exparel, 30 cc of normal saline, 50 cc of 0.25% Marcaine with epinephrine. Patient did receive 1 gram of tranexamic acid. The tourniquet was then let down for a final tourniquet time of 62 minutes. Hemostasis was assured with the use of electrocautery. The extensor mechanism was then closed with a combination of #1 PDS suture and #1 Vicryl suture in a [id number] fashion. The extensor mechanism was checked and found to be intact. The subcutaneous tissues were then closed with 2-0 Dexon suture in a buried interrupted fashion. Skin was closed with skin carmen. Leg was then cleaned and dried and sterile dressing of Xeroform, 4 x 4s, sterile cast padding and an Lalo bandage were applied. The patient was then transferred to the recovery room in stable condition. The patient tolerated the procedure well without complications. All needle and sponge counts were correct at the end of the operation. ADDENDUM: Preoperatively I gave this patient both Vancomycin and Ancef. We gave her the Vancomycin due to her questionable history of this previous MRSA infection. We also gave her Ancef to provide a more complete Gram-positive coverage.
== END 2017-04-09 10:53 | disposition home health service (06) | DRG 470 ==
LOC: C.ACU 10:28 → C.3E 11:02 → ENRESERV 15:59
PROVIDERS: ADMIT Orthopaedic Surgery Sports Medicine; ATTEND Orthopaedic Surgery Sports Medicine
PROC: 0SRD0J9 Replacement of Left Knee Joint with Synthetic Substitute, Cemented, Open Approach (ICD-10-PCS; principal; 2017-04-07 13:00)
DX: M17.12 Unilateral primary osteoarthritis, left knee (principal); E78.00 Pure hypercholesterolemia, unspecified; I10 Essential (primary) hypertension; K21.9 Gastro-esophageal reflux disease without esophagitis; E66.9 Obesity, unspecified; Z68.37 Body mass index [BMI] 37.0-37.9, adult; Z87.891 Personal history of nicotine dependence; Z86.14 Personal history of Methicillin resistant Staphylococcus aureus infection; Z96.641 Presence of right artificial hip joint; Z79.1 Long term (current) use of non-steroidal anti-inflammatories (NSAID); Z79.899 Other long term (current) drug therapy

== ENCOUNTER 2023-11-15 07:05 | Observation (INO) ==
--- NOTE | 2023-10-26 10:37 | PAT Medication Instructions ---
Medication Instructions Date of Service October 26, 2023 Home Medications cholecalciferol (vitamin D3) 25 mcg (1,000 unit) tablet (Vitamin D3) 25 mcg PO BID omeprazole 20 mg tablet,delayed release 20 mg PO QAM simvastatin 20 mg tablet 20 mg PO HS Lactobacillus rhamnosus GG 10 billion cell capsule (Culturelle) 1 cap PO QPM acetaminophen 500 mg tablet 1,000 mg PO BID PRN prn ammonium lactate 12 % topical cream 1 applic topical DAILY PRN aspirin 81 mg capsule 81 mg PO QAM celecoxib 100 mg capsule (Celebrex) 100 mg PO BID clotrimazole-betamethasone 1 %-0.05 % topical cream 1 applic topical BID PRN donepezil 5 mg tablet 5 mg PO HS duloxetine 30 mg capsule,delayed release 30 mg PO HS hydrochlorothiazide 25 mg tablet 25 mg PO QAM levothyroxine 125 mcg tablet 125 mcg PO QAM metformin 500 mg tablet 500 mg PO BID metoprolol succinate 50 mg tablet,extended release 24 hr 50 mg PO QPM multivitamin,min-ferrous fumarate 3.3 mg-folic 25 mcg-herb tablet (Hair, Skin and Nails Advanced) 1 tab PO QAM nystatin 100,000 unit/gram topical powder 1 applic topical DAILY PRN ASK your surgeon for instructions celecoxib 100 mg capsule (Celebrex) 100 mg PO BID STOP taking 2 weeks before surgery multivitamin,min-ferrous fumarate 3.3 mg-folic 25 mcg-herb tablet (Hair, Skin and Nails Advanced) 1 tab PO QAM STOP taking 24 hours before surgery ammonium lactate 12 % topical cream 1 applic topical DAILY PRN clotrimazole-betamethasone 1 %-0.05 % topical cream 1 applic topical BID PRN nystatin 100,000 unit/gram topical powder 1 applic topical DAILY PRN DO NOT take the morning of surgery cholecalciferol (vitamin D3) 25 mcg (1,000 unit) tablet (Vitamin D3) 25 mcg PO BID hydrochlorothiazide 25 mg tablet 25 mg PO QAM metformin 500 mg tablet 500 mg PO BID Take morning of surgery With a small sip of water, OTHERWISE NOTHING TO EAT OR DRINK AFTER MIDNIGHT: omeprazole 20 mg tablet,delayed release 20 mg PO QAM acetaminophen 500 mg tablet 1,000 mg PO BID PRN (if needed) aspirin 81 mg capsule 81 mg PO QAM (unless surgeon directed otherwise) levothyroxine 125 mcg tablet 125 mcg PO QAM Take evening before surgery simvastatin 20 mg tablet 20 mg PO HS Lactobacillus rhamnosus GG 10 billion cell capsule (Culturelle) 1 cap PO QPM acetaminophen 500 mg tablet 1,000 mg PO BID PRN (if needed) donepezil 5 mg tablet 5 mg PO HS duloxetine 30 mg capsule,delayed release 30 mg PO HS metformin 500 mg tablet 500 mg PO BID metoprolol succinate 50 mg tablet,extended release 24 hr 50 mg PO QPM Other Notes If you have any questions please call us at [phone] or [phone] or [phone] or [phone]
--- NOTE | 2023-10-30 11:37 | Anesthesiology Consultation ---
Date of Service October 30, 2023 Assessment & Plan (1) Encounter for pre-operative examination: - check BSG am DOS. - will request 10/26/23 Dr. Lisseth Cooper [facility] office note. patient will need pseudocholinesterase deficiency precautions OR notified. - Outpatient joint assessment: Patient is currently scheduled for inpatient pathway. If re-evaluated and patient/surgeon requests outpatient pathway, patient is not recommended candidate for outpatient joint program from anesthesia standpoint. Chart Review Chart Review: Pending: Refer to Additional Notes / Consult section and Patient seen in Pre Admission Testing Teaching & Discussion Pre-Anesthesia Teaching/Discussion Notes: Instructed NPO after midnight before surgery, except medications with 15 cc of water. Medication instructions provided according to the PAT guidelines. History Surgery Operation Date: 11/15/23 08:50 Proposed Procedures p Left Total Hip Arthroplasty - Gabriel Nunn MD Height/Weight Height: 5 ft 2.5 in Weight: 99.3 kg Allergies Allergy/AdvReac Type Severity Reaction Status Date / Time adhesive Allergy Unknown BLISTERS, Verified 10/26/23 08:21 IRRITATION Penicillins Allergy Unknown YEAST Verified 10/26/23 08:21 INFECTIONS Medications Home Medications Medication Instructions Recorded Confirmed Last Taken cholecalciferol (vitamin D3) 25 25 mcg PO BID ##0 03/06/17 10/26/23 Unknown mcg (1,000 unit) tablet (Vitamin D3) omeprazole 20 mg tablet,delayed 20 mg PO QAM #0 caps 03/06/17 10/26/23 Unknown release simvastatin 20 mg tablet 20 mg PO HS #0 tabs 03/06/17 10/26/23 Unknown Lactobacillus rhamnosus GG 10 1 cap PO QPM 10/26/23 10/26/23 Unknown billion cell capsule (Culturelle) acetaminophen 500 mg tablet 1,000 mg PO BID PRN prn 10/26/23 10/26/23 Unknown ammonium lactate 12 % topical cream 1 applic topical DAILY PRN prn 10/26/23 10/26/23 Unknown aspirin 81 mg capsule 81 mg PO QAM 10/26/23 10/26/23 Unknown celecoxib 100 mg capsule (Celebrex) 100 mg PO BID 10/26/23 10/26/23 Unknown clotrimazole-betamethasone 1 1 applic topical BID PRN prn 10/26/23 10/26/23 Unknown %-0.05 % topical cream donepezil 5 mg tablet 5 mg PO HS 10/26/23 10/26/23 Unknown duloxetine 30 mg capsule,delayed 30 mg PO HS 10/26/23 10/26/23 Unknown release hydrochlorothiazide 25 mg tablet 25 mg PO QAM 10/26/23 10/26/23 Unknown levothyroxine 125 mcg tablet 125 mcg PO QAM 10/26/23 10/26/23 Unknown metformin 500 mg tablet 500 mg PO BID 10/26/23 10/26/23 Unknown metoprolol succinate 50 mg 50 mg PO QPM 10/26/23 10/26/23 Unknown tablet,extended release 24 hr multivitamin,min-ferrous fumarate 1 tab PO QAM 10/26/23 10/26/23 Unknown 3.3 mg-folic 25 mcg-herb tablet (Hair, Skin and Nails Advanced) nystatin 100,000 unit/gram topical 1 applic topical DAILY PRN prn 10/26/23 10/26/23 Unknown powder amoxicillin 875 mg-potassium 1 tab PO BID 10/27/23 10/27/23 Unknown clavulanate 125 mg tablet fluconazole 100 mg tablet 100 mg PO DAILY 10/27/23 10/27/23 Unknown prednisone 10 mg tablets in a dose 10 mg PO BID 10/27/23 10/27/23 Unknown pack Past Medical History Medical History Acquired cystic kidney disease Depression Family history of pseudocholinesterase deficiency daughter Family history of reaction to anesthesia daughter with pseudocholinesterase deficiency; mother had PONV GERD (gastroesophageal reflux disease) controlled, stable per pt History of COVID-19 2019, CARRASCO-denies hospitalization-persistent occasional dyspnea on exertion and productive cough-denies change or worsening History of kidney stones x1, passed on own Hyperlipidemia Hypertension controlled, stable per pt Hypothyroidism MCKENNA (nonalcoholic steatohepatitis) Neuropathy Pancreas cyst Prediabetes on metformin Sinus infection dx 10/26/23 by pcp>on Augmentin, prednisone-reports symptoms improving now just experiencing nasal congestion-will complete medications 11/03/23. Sleep apnea non compliant with device, "can't use it" Patient denies h/o stroke, seizures, heart attack, heart failure, blood cl ots/DVTs or blood transfusions. Exercise / Class Metabolic Activity III < 4 Walking/Shop/Light housework (occasional dyspnea on exertion on flat surfaces since having COVID 2019-ambulates with cane-denies change or worsening; denies chest discomfort) Past Surgical History Surgical History H/O surgical removal of Bartholin’s gland cyst History of carpal tunnel release of both wrists History of cataract surgery bilateral History of cholecystectomy 2017 History of resection of small bowel 2000 bowel obstruction History of surgery vaginal repair/prolapsed bladder intervention per PCP records History of surgery of uterus prolapse History of thyroidectomy, subtotal 2020 History of total hip arthroplasty right, 2013 History of total knee replacement left, 2017 Past Anesthesia History No Hx of Anesthesia Complications and Pseudocholinesterase Deficiency History of PONV No Hx of PONV and No Hx of Motion Sickness Social History Smoking Status: Never smoker Do You Dip or Chew Tobacco: No Hx Alcohol Use: No Hx Substance Use: No substance use type: does not use Review of Systems Patient denies chest pain, shortness of breath, dyspnea on exertion, fever, chills, cough, wheezing, or palpitations. Physical Exam Vital Signs Vitals BP 146/86 P 70 TEMP 97.8 SP02 96% on RA RESP 18 Physical Patient resting comfortably in chair in no acute distress, alert and oriented, responding appropriately throughout visit Full cervical extension range of motion without pain TMD < 3 finger breadths Mallampati Score 3 Dentition: intact, denies chipped or loose teeth, caps/crowns, implants or bridges Lungs: normal respiratory effort. Good air movement, clear throughout to auscultation, no adventitious breath sounds Cardiac: regular rate and rhythm, no murmurs noted Carotid arteries: negative bruit bilat Lab Results Anesthesia Preop Results Results Anesthesia Widget: WBC 7.57 K/ul (4.8-10.8) 10/30/23 Hgb 14.2 g/dl (12.0-16.0) 10/30/23 Hct 44.1 % (37.0-47.0) 10/30/23 Plt 206 K/uL (130-400) 10/30/23 Na 137 mmol/L (136-145) 10/30/23 K 4.3 mmol/L (3.5-5.1) 10/30/23 Cl 101 mmol/L (98-107) 10/30/23 CO2 28 mmol/L (21-32) 10/30/23 BUN 17 mg/dl (6-23) 10/30/23 Creat 0.87 mg/dl (0.6-1.2) 10/30/23 Glucose Level 141 mg/dl (70-99(Fasting)) H 10/30/23 PT 11.4 Seconds (9.0-12.0) 10/30/23 PTT 25 Seconds (21-31) 10/30/23 INR 1.0 (0.9-1.1) 10/30/23 HA1c 6.2 % (4.5-5.6) H 10/30/23 Blood Type O Positive 10/30/23 Antibody Screen NEGATIVE 10/30/23 Testing Electrocardiogram Date: 10/30/23 NSR, rate 67 bpm Chest X-Ray Date: 10/30/23 No acute process. Stress Test Date: 09/20/22 Pharmacologic Normal study No evidence of ischemia or infarction Low risk MPI
--- NOTE | 2023-11-11 10:28 | History & Physical Report ---
Date of Service November 11, 2023 Assessment & Plan (1) Degenerative joint disease of left hip: 73-year-old female with a history of a right hip replacement as well as left knee replacement done in the past with advanced left hip arthritis. She has failed conservative measures. Temporary sponsor injection. She is ready to have her hip fixed. Plan: When taken to the operating do left total hip placed for the risks Mente this procedure were explained the patient include but not limited to DVT PE infection neurological and vascular bleeding palm pain limb range of motion sepsis fairly with symptoms incomplete relief of symptoms excetra. Patient understands and desires to proceed. Informed consent was obtained. As far as DVT prophylaxis we use aspirin twice a day along with teds and SCDs. She did have a relatively recent cough and recovering from some antibiotic management will need to make sure that is cleared out preoperatively. She is planned to be discharged home using [facility]. She will hold her metformin the morning of surgery. History of Present Illness Chief Complaint: . Left hip and leg pain. Primary Care Provider: Lisseth Cooper PA-C . Patient is a 73-year-old female referred by Fabian and Dr. Mcgrath for treatment of her left hip. She has history of a right hip replacement done 2013 or 2014 and the left knee replacement done by myself in 2017. She done pretty well with these replacements. Over the past year to year and a half she developed increased pain discomfort in her left hip and leg. She describes groin pain thigh pain rating down to her knee. She does have history of back problems and as well and followed by Dr. Rodriguez for that. She gets intermittent injections. She did have an intra-articular hip joint injection provided by Dr. Gallo helped her for about a week and that is about it. Pain is getting worse. She limps pretty much all day long gets worse as time goes on. She would like to have her hip fixed. Allergies Allergy/AdvReac Type Severity Reaction Status Date / Time adhesive Allergy Unknown BLISTERS, Verified 10/26/23 08:21 IRRITATION Penicillins Allergy Unknown YEAST Verified 10/26/23 08:21 INFECTIONS Home Medications Medication Instructions Recorded Confirmed Type cholecalciferol (vitamin D3) 25 25 mcg PO BID ##0 03/06/17 10/26/23 History mcg (1,000 unit) tablet (Vitamin D3) omeprazole 20 mg tablet,delayed 20 mg PO QAM #0 caps 03/06/17 10/26/23 History release simvastatin 20 mg tablet 20 mg PO HS #0 tabs 03/06/17 10/26/23 History Lactobacillus rhamnosus GG 10 1 cap PO QPM 10/26/23 10/26/23 History billion cell capsule (Culturelle) acetaminophen 500 mg tablet 1,000 mg PO BID PRN prn 10/26/23 10/26/23 History ammonium lactate 12 % topical cream 1 applic topical DAILY PRN prn 10/26/23 10/26/23 History aspirin 81 mg capsule 81 mg PO QAM 10/26/23 10/26/23 History celecoxib 100 mg capsule (Celebrex) 100 mg PO BID 10/26/23 10/26/23 History clotrimazole-betamethasone 1 1 applic topical BID PRN prn 10/26/23 10/26/23 History %-0.05 % topical cream donepezil 5 mg tablet 5 mg PO HS 10/26/23 10/26/23 History duloxetine 30 mg capsule,delayed 30 mg PO HS 10/26/23 10/26/23 History release hydrochlorothiazide 25 mg tablet 25 mg PO QAM 10/26/23 10/26/23 History levothyroxine 125 mcg tablet 125 mcg PO QAM 10/26/23 10/26/23 History metformin 500 mg tablet 500 mg PO BID 10/26/23 10/26/23 History metoprolol succinate 50 mg 50 mg PO QPM 10/26/23 10/26/23 History tablet,extended release 24 hr multivitamin,min-ferrous fumarate 1 tab PO QAM 10/26/23 10/26/23 History 3.3 mg-folic 25 mcg-herb tablet (Hair, Skin and Nails Advanced) nystatin 100,000 unit/gram topical 1 applic topical DAILY PRN prn 10/26/23 10/26/23 History powder amoxicillin 875 mg-potassium 1 tab PO BID 10/27/23 10/27/23 History clavulanate 125 mg tablet fluconazole 100 mg tablet 100 mg PO DAILY 10/27/23 10/27/23 History prednisone 10 mg tablets in a dose 10 mg PO BID 10/27/23 10/27/23 History pack Past Med/Surg History Medical History Family history of pseudocholinesterase deficiency daughter Neuropathy GERD (gastroesophageal reflux disease) controlled, stable per pt MCKENNA (nonalcoholic steatohepatitis) Prediabetes on metformin Pancreas cyst Acquired cystic kidney disease Sinus infection dx 10/26/23 by pcp>on Augmentin, prednisone-reports symptoms improving now just experiencing nasal congestion-will complete medications 11/03/23. Family history of reaction to anesthesia daughter with pseudocholinesterase deficiency; mother had PONV History of kidney stones x1, passed on own Hypothyroidism Depression Hyperlipidemia Hypertension controlled, stable per pt History of COVID-19 2019, CARRASCO-denies hospitalization-persistent occasional dyspnea on exertion and productive cough-denies change or worsening Sleep apnea non compliant with device, "can't use it" Surgical History H/O surgical removal of Bartholin’s gland cyst History of resection of small bowel 1999 bowel obstruction History of surgery vaginal repair/prolapsed bladder intervention per PCP records History of surgery of uterus prolapse History of carpal tunnel release of both wrists History of total hip arthroplasty right, 2013 History of total knee replacement left, 2017 History of cholecystectomy 2017 History of thyroidectomy, subtotal 2020 History of cataract surgery bilateral Social History Smoking Status: Never smoker Second Hand Exposure: No; Do You Dip or Chew Tobacco: No; Hx Alcohol Use: No Hx Substance Use: No Preferred Language: Taj[place] Hot Blaster Required: No Beliefs That Will Affect Care: None Current Living Situation: Spouse Feels Safe at Home: Yes Assistive Devices: Cane, Denture - Upper and Glasses Review of Systems All systems reviewed & are unremarkable except as noted in HPI & below. Physical Exam . Physical examination was a pleasant middle-age female. Looks in pretty good health. Examination left hip and leg reveal patient walks with a slightly antalgic gait. Leg lengths appear pretty equal. She does have pain and stiffness with any attempted hip motion. She can internally rotate to neutral at best. Negative straight leg raise. She is neurologically intact. Examination left knee reveals a well-healed incision. No swelling. Range of motion 0-1 20. Good straight leg raise. Constitutional WD/WN, vitals as above Respiratory normal respiratory effort, lungs clear to auscultation Cardiovascular RRR, no murmur, no edema Gastrointestinal (Abdomen) normal bowel sounds, soft, nontender, no hepatosplenomegaly Results & Data Results & Data Laboratory Results . Diagnostic Findings . X-rays of the left hip were reviewed. Shows advanced left hip arthritis. She got complete loss of the joint space. It has progressed over the past several months from previous x-rays. X-rays of the knee show well-positioned knee replacement. No signs of problems. PG Care Time/CCT Total # of Minutes Spent Total Time Spent with Patient: Total time spent is greater than 50% in coordination of care (as documented) at patient's floor/unit and/or counseling patient: Coding Level of Care Code None Diagnoses Degenerative joint disease of left hip M16.12
[~2023-11-15 07:05] MED LIST changes: -ACETAMINOPHEN 500 MG TAB PO SCH; -BUPIVACAINE 0.25% 30 ML VIAL ONE; -BUPIVACAINE LIPOSOME 266 MG, BUPIVACAINE/EPINEPHRINE INJ 50 ML, SODIUM CHLORIDE 0.9% PF... INFIL SCH; -CYAN500T13 PO; -FAMOTIDINE 20 MG TAB PO SCH; -GABAPENTIN 300 MG CAP PO SCH; -HYDR25TA4 PO; -KRIL1CAP18 PO; -LACTATED RINGER'S 1000ML IV SCH; -LACTATED RINGER'S 500 ML IV SCH; -METO50TA7 PO; -METOCLOPRAMIDE HCL 10 MG TAB PO SCH; -MULT-1018 PO; -NAPR1TAB9 PO; -PRLSR20 PO; -SCOPOLAMINE 1.5 MG TDSY TD SCH; -SIMV5TAB2 PO; -VANCOMYCIN INJ 1,500 MG in SODIUM CHLORIDE 0.9% 500ML 500 ML IV SCH; -VITAMIN D PO
[2023-11-15] MEDS: LR 60ML/HR IV SCH (07:55)
[2023-11-15] MEDS: CeleBREX 200 MG CAP PO SCH (07:56)
[2023-11-15] MEDS: FAMOTIDINE 20 MG TAB PO SCH (07:56)
[2023-11-15] MEDS: ACETAMINOPHEN 500 MG TAB PO SCH ×2 (07:56→13:19)
[2023-11-15] MEDS: METOCLOPRAMIDE HCL 10 MG TABLET PO SCH (07:56)
[2023-11-15] MEDS: LR 500ML BOLUS, THEN 15ML/HR IV SCH (07:57)
[2023-11-15] MEDS ORDERED: fentaNYL citrate PF 100 MCG/2 ML VIAL ONE (08:28)
[2023-11-15] MEDS ORDERED: MIDAZOLAM HCL 1 MG/ML 2ML VIAL ONE ×2 (08:28→09:19)
[2023-11-15] MEDS ORDERED: PROPOFOL IV EMULSION 10 MG/ML 20 ML VIAL IV ONE (08:29)
[2023-11-15] MEDS ORDERED: ONDANSETRON INJ 2 MG/ML 2 ML VIAL IV PRN ×2 (08:31→12:07)
[2023-11-15] MEDS ORDERED: PROMETHAZINE HCL 6.25 MG in SODIUM CHLORIDE 0.9% 50 ML IV PRN (08:31)
[2023-11-15] MEDS ORDERED: HYDROmorphone INJ 2 MG/ML SYR/VIAL IV PRN (08:31)
[2023-11-15] MEDS ORDERED: fentaNYL citrate PF 100 MCG/2 ML VIAL IV PRN (08:31)
[2023-11-15] MEDS ORDERED: ATROPINE SULFATE 0.1 MG/ML 10ML SYR IV PRN (08:31)
[2023-11-15] MEDS ORDERED: ePHEDrine sulfate 50 MG/ML AMP IV PRN (08:31)
[2023-11-15] MEDS: dexAMETHasone**PF** 10 MG/ML VIAL ONE (08:44)
[2023-11-15] MEDS: TRANEXAMIC ACID 1,000 MG **IV Pre-op IV SCH (08:45)
--- NOTE | 2023-11-15 08:45 | History & Physical Bridge Note ---
Date of Service November 15, 2023 History & Physical Bridge Note I have examined the patient, reviewed the History & Physical and in the interval since the performance of the History & Physical I have noted the following changes of clinical significance: no changes noted
[2023-11-15] MEDS ORDERED: ONDANSETRON INJ 2 MG/ML 2 ML VIAL ONE (09:19)
[2023-11-15] MEDS: BUPIVACAINE/EPINEPHRINE 0.5% MPF 1:200,000 30 ML VIAL ONE (10:27)
--- NOTE | 2023-11-15 10:57 | Operative Report ---
PG Post Operative Report Pre & Post Diagnosis Operation Date: 11/15/23 08:50 Pre-Op Diagnosis: Left Hip Degenerative Joint Disease Post-Op Diagnosis: Left Hip Degenerative Joint Disease I identified the patient and participated in the time-out.: Yes Procedure Operation Date: 11/15/23 08:50 Actual Procedures p Left Total Hip Arthroplasty(Left) - Gabriel Nunn MD Surgeon Gabriel Nunn MD Work Adjustment Instructor Fabian Valdez PA-C Estimated Blood Loss 200 Findings Consistent with Post-Op Diagnosis Specimens Left femoral head sent for pathology Anesthesia Type Spinal MAC Complications none Disposition Accompanied Patient To Recovery: No Indications Patient is a 73-year-old female whose had a several year history of increasing left hip pain discomfort is gotten worse over time. She failed conservative measures. X-rays show progressive hip arthritis. She elected proceed with total hip arthroplasty. Description of Procedure Operative implants consist of: 1 Biomet G7 size 50 mm acetabular shell. 2. Aurora hole hebrew cantor. 3. 6.5 cancellous acetabular screws with 35 mm length and 1 to 25 mm length. 4. Highly cross-linked polyethylene liner with a 50 mm outer diam and 36 mm inner diameter. 5. DePuy Corail size 10 KLA femoral stem. 6. +1.5/36 mm ceramic articular ball. The patient was taken the operating, identified, placed on the operating table in the supine position. Contractors were appropriately padded. IV antibiotics tried by anesthesia team. A spinal anesthetic had been implemented holding area. A Neil catheter was then placed. The patient was then placed in the right lateral decubitus position. Axillary roll was placed. Stulberg hip positioner was used for positioning. The left hip and leg were then prepped and draped in usual sterile fashion. A posterolateral approach the left hip was then performed through a curvilinear incision centered over the greater trochanter. Sharp dissection carried through subcutaneous tissue down of the IT band gluteal fascia. The IT band gluteal fascia were then incised longitudinally in line with skin skin incision. The greater trochanter bursa was excised. The piriformis and external rotators along as well as the posterior hip joint capsule were then released from the posterior aspect the hip as a single layer. Hip was internally rotated and dislocated. Femoral neck osteotomy cut was made with a Final Cut about 7 mm above the lesser trochanter. Femoral head was removed and sent for pathology. The femur was retracted anteriorly. Attention drawn the acetabulum. The acetabular labrum was excised. The pulmonary fat was excised. Sequential reaming the acetabular was then performed again with size 43 and progressing up to 49. I then reamed a bit with a 50 reamer and then placed a 50 mm Biomet G7 acetabular shell in about 40 degrees lateral opening and 20 degrees of anteversion. It was fixed with two 6.5 cancellous acetabular screws. A trial liner was placed. Attention drawn the femur. The proximal femur was then with a cookie cutter followed by canal finder. I then broached beginning with size 8 and progressed up to a 10. Get excellent fitted to 10. Calcar reamer was used smoothed off the calcar. I trialed ball was then placed. Hip was relocated and found to be stable in full extension and external rotation flexion to 90 degrees internal rotation over 50 degrees. We elected to use the +1.5 head as I thought the initial 5 head was just a little bit too long and too tight. We elect place these implants. All trial implants were removed. An apex hole hebrew cantor was placed. Highly cross-linked polyethylene liner was placed. A size 10 KLA femoral stem was impacted in position. A +1.5/36 mm ceramic articular ball was placed. Hip was located and once again found to be stable. Attention drawn toward closing. The wound was irrigated cosigns pulsatile lavage solution. I did inject locally with 60 cc of half percent Marcaine with epinephrine. The posterior capsule and external rotators were then repaired through drill holes in the posterior trochanter with #2 Tycron suture. The IT band gluteal fascia then closed in 1 PDS suture in running fashion for subcutaneous tissues were closed in 2 layers with a deep layer #2-0 Vicryl suture in a buried interrupted fashion the subcutaneous tissue with 2 Dexon suture in a buried interrupted fashion. Skin was closed with skin carmen. Leg was then cleaned and dry and a sterile Prevena VAC dressing was applied due to her very thick soft tissue envelope. The patient was then transferred to the recovery room in stable condition. Patient tolerated procedure well and no complications. Fabian Valdez, my physician pest controller assistant, was present for the entire procedure. His assistance was essential and required for appropriate patient positioning, prepping and draping, surgical exposure, performing the technical details of the operation, placement the implants, closure of the wound, and placement of the sterile bandage. I attest to the content of the Intraoperative Record and any orders documented therein. Any exceptions are noted below.
--- NOTE | 2023-11-15 11:23 | XRay Report ---
XR hip 1V LT w pelvis CLINICAL HISTORY: IN PACU - Post Surgical TECHNIQUE: 1 view of the left hip and single frontal view of the pelvis were obtained. Comparison: Comparison is made to hip radiograph 10/09/2023 FINDINGS: Old right total hip arthroplasty noted. Patient is status post total hip arthroplasty with expected postsurgical changes including soft tissu e swelling and subcutaneous emphysema. IMPRESSION: Expected postoperative appearance status post placement of total hip arthroplasty. ACT 112: Negative or not required by law. Electronically signed by: Claudio Chou M.D. 11/15/2023 11:22 AM
[2023-11-15] MEDS ORDERED: bisacodyL 10 MG SUPP PR PRN (12:07)
[2023-11-15] MEDS ORDERED: NALOXONE HCL 0.4 MG/1 ML VIAL/CARP IV PRN (12:07)
[2023-11-15] MEDS ORDERED: CARBOHYDRATES FOR HYPOGLYCEMIA PO PRN (12:07)
[2023-11-15] MEDS ORDERED: GLUCOSE 10 TAB/TUBE PO PRN (12:07)
[2023-11-15] MEDS ORDERED: MAGNESIUM HYDROXIDE SUSP 30 ML UDC PO PRN (12:07)
[2023-11-15] MEDS ORDERED: METOCLOPRAMIDE HCL INJ 5 MG/ML 2 ML VIAL IV PRN (12:07)
[2023-11-15] MEDS ORDERED: DEXTROSE 50% 50 ML SYRINGE IV PRN (12:07)
[2023-11-15] MEDS ORDERED: PHARMACY GLYCEMIC MGMT CONSULT PRN (12:07)
[2023-11-15] MEDS ORDERED: ALUMINUM/MAGNESIUM SUSP 30 ML UDC PO PRN (12:07)
[2023-11-15] MEDS ORDERED: HYDROmorphone INJ 0.5 MG/0.5 ML SYR IV PRN (12:07)
[2023-11-15] MEDS ORDERED: traMADol HCL 50 MG TABLET PO PRN ×2 (12:07)
[2023-11-15] MEDS ORDERED: GLUCAGON FOR INJ 1 MG VIAL SQ PRN (12:07)
[2023-11-15] MEDS ORDERED: GLUCOSE 40% GEL 15 GM TUBE PO PRN (12:07)
[2023-11-15] MEDS ORDERED: AMMONIUM LACTATE 12% LOTION 225 GM BTL EXT PRN (12:30)
--- NOTE | 2023-11-15 12:58 | Pharmacy Report ---
Pharmacy Glycemic Short Note 2 - Date of Service November 15, 2023 - Glycemic Short BSG Results (Last 24 hours): 11/15/23 11/15/23 07:50 10:52 POC Glucose 113 H 137 H OUTPATIENT ANTIDIABETIC REGIMEN: * metformin 500mg PO BID HbA1C: 6.2% (10/30/23) ASSESSMENT: * Pt is a 73 year old female admitted POD#0 left total hip arthroplasty. History of prediabetes on metformin. Pharmacy consulted to assist w/ glycemic management. * BSGs 113,137mg/dL pre and post op. Diet ordered. * Received 10mg IV dex intra-op and ordered 8mg PO tomorrow. * Lantus 10units X 1 now + HS scale depending on BSG. Novolog mod-severe stress scale. PLAN FOR INPATIENT GLYCEMIC CONTROL: * Hold outpatient oral diabetes medications * Basal insulin * Lantus 10 units SQ X 1 + HS scale (0/10) depending on BSG * Bolus insulin * NovoLog per scale ACHS or Q6hrs while NPO * Goal Range: Low 110 mg/dL - High 140 mg/dL * Correction Factor: 20 mg/dL/unit * Nutritional / Prandial insulin per carb ratio of 1 unit per 7 grams CHO consumed
--- NOTE | 2023-11-15 13:13 | Anesthesiology Progress Note ---
Date of Service November 15, 2023 Anesthesia Post Procedure Vital Signs Vital Signs: Temp Pulse Pulse Resp BP Pulse Ox O2 Del Method 11/15/23 13:00 87 15 126/79 95 Room Air 11/15/23 12:30 36.5 C 78 15 122/78 95 Room Air 11/15/23 12:00 36.3 C L 80 15 134/76 95 Room Air 11/15/23 11:50 84 12 136/75 95 Room Air 11/15/23 11:35 37.0 C 82 17 135/76 98 Room Air 11/15/23 11:25 82 20 124/81 100 Oxymask 11/15/23 11:15 84 24 135/70 97 Oxymask 11/15/23 11:05 84 18 126/74 100 Oxymask 11/15/23 10:55 88 17 131/65 99 Oxymask 11/15/23 10:49 36.9 C 89 18 134/69 98 Oxymask 11/15/23 08:01 36.6 C 75 20 147/85 H 98 Room Air O2 Flow Rate 11/15/23 13:00 11/15/23 12:30 11/15/23 12:00 11/15/23 11:50 11/15/23 11:35 11/15/23 11:25 3 11/15/23 11:15 5 11/15/23 11:05 5 11/15/23 10:55 7 11/15/23 10:49 9 11/15/23 08:01 Pain Intensity Left Hip: Pain Intensity: 5 Transfer of Care Handoff Completed per policy Notes Mental Status: alert / awake / arousable and participated in evaluation Nausea / Vomiting: adequately controlled Pain: adequately controlled Airway Patency, RR, SpO2: stable & adequate BP & HR: stable & adequate Hydration State: stable & adequate Neuraxial Anesthesia: was administered and sensory block is resolving Anesthetic Complications: no major complications apparent and Pt Satisfied with anesthetic care
[2023-11-15] MEDS: ceFAZolin 2000MG 2,000 MG/15 ML SYR IV SCH ×2 (13:15→17:49)
[2023-11-15] MEDS: DEXAMETHASONE SOD INJ 4 MG/ML VIAL IV STA (13:16)
[2023-11-15] MEDS: SODIUM CHLORIDE 0.9% 1,000 ML IV SCH (13:16)
[2023-11-15] MEDS: LANTUS PER UNIT CHARGE SC ONE (13:19)
[2023-11-15] MEDS: INSULIN ASPART PER UNIT CHARGE SC SCH (13:19)
[2023-11-15] MEDS: KETOROLAC TROMETHAMINE 15 MG/ML VIAL IV SCH (13:19)
[2023-11-15] MEDS ORDERED: ACETAMINOPHEN 500 MG TAB PO SCH (14:00)
[2023-11-15] MEDS: TRANEXAMIC ACID / 0.7% NACL 1,000 MG/100 ML BAG IV SCH (17:16)
[2023-11-15] MEDS: ASCORBIC ACID 500 MG TAB PO SCH (17:33)
[2023-11-15] MEDS ORDERED: SENNA 8.6 MG TAB PO SCH (21:00)
[2023-11-15] MEDS: DONEPEZIL HCL 5 MG TAB PO SCH (21:26)
[2023-11-15] MEDS: LACTOBACILLUS ACIDOPHILUS 1 GM PACK PO SCH (21:26)
[2023-11-15] MEDS: ASPIRIN 81 MG ECTAB PO SCH (21:26)
[2023-11-15] MEDS: DULoxetine HCL 30 MG CAP PO SCH (21:26)
[2023-11-15] MEDS: METOPROLOL SUCC 50MG EXT REL TAB PO SCH (21:26)
[2023-11-15] MEDS: CHOLECALCIFEROL 25 MCG (1000 UNITS) TAB PO SCH (21:26)
[2023-11-15] MEDS: SIMVASTATIN 20 MG TAB PO SCH (21:27)
[2023-11-15] MEDS: SENNA 8.6 MG TAB PO SCH (21:27)
[2023-11-15] MEDS: DOCUSATE SODIUM 100 MG CAP PO SCH (21:27)
[2023-11-15] MEDS: LANTUS PER UNIT CHARGE SC SCH (21:34)
[2023-11-16] MEDS: LEVOTHYROXINE SODIUM 125 MCG TABLET PO SCH (06:07)
--- NOTE | 2023-11-16 07:17 | Surgery Progress Note ---
Date of Service November 16, 2023 Assessment & Plan (1) Status post left hip replacement: Plan: 73-year-old female postop day 1 from left hip replacement doing pretty well. Pain is controlled. Hips located. She is neurologically intact. Open to go home. Plan: 1. DVT prophylaxis including thigh-high teds, SCDs, aspirin twice a day. 2. PT/OT. Weight-bear as tolerated. Left total hip protocol. 3. Pain control doing well with current pain regimen. 4. Wound management. She got a Prevena VAC dressing in place. Will leave that on for a week. 5. Disposition plan to discharge home with some home health if she does okay in therapy today. Admission and Anticipated Discharge Date Admission Date: November 15, 2023 Subjective 73-year-old female postop day 1 from a left hip replacement. She is doing pretty well. Pain is controlled. A reasonable night. Hoping to go home today. No chest pain or shortness of breath. Physical Exam Physical Exam: Physical examination was a pleasant middle-age female. Sitting on her bedside chair looks pretty comfortable. Examination left hip reveals a Prevena VAC dressing to be in place. Thigh is soft and supple. Hips located. Leg lengths equal. She is neurologically intact. Respiratory: normal respiratory effort, lungs clear to auscultation Cardiovascular: RRR, no murmur, no edema Gastrointestinal (Abdomen): normal bowel sounds, soft, nontender, no hepatosplenomegaly Results & Data Vital Signs (Past 12 Hours) Vital Signs Temp Pulse Resp BP Pulse Ox O2 Del Method 11/16/23 03:29 36.6 C 85 18 123/73 96 Room Air 11/15/23 22:09 36.6 C 84 16 111/67 95 Room Air 11/15/23 19:32 36.7 C 92 H 18 125/69 96 Room Air Laboratory Results Labs are pending. PG Care Time/CCT Total # of Minutes Spent Total Time Spent with Patient: Total time spent is greater than 50% in coordination of care (as documented) at patient's floor/unit and/or counseling patient: Coding Level of Care Code 96919 Post Operative Follow-Up Diagnoses Status post left hip replacement Z96.642
[2023-11-16 07:25] LABS: Basophils # (auto) 0.03 K/uL (0.00-0.20); Basophils % (auto) 0.3 %; Hematocrit (blood only) 33.9 % (37.0-47.0); Hemoglobin 10.7 g/dl (12.0-16.0); Immature Granulocytes # (auto) 0.05 K/uL (0.01-0.20); Immature Granulocytes % (auto) 0.5 %; Lymphocytes # (auto) 1.54 K/uL (1.20-3.40); Lymphocytes % (auto) 15.2 %; Mean Corpuscular Hgb Conc 31.6 g/dL (32.0-36.0); Mean Corpuscular Volume 82.5 fL (80.0-100.0); Mean Platelet Volume 10.3 fL (9.4-12.4); Monocytes # (auto) 0.89 K/uL (0.11-0.59); Monocytes % (auto) 8.8 %; Neutrophils # (auto) 7.64 K/uL (1.40-6.50); Neutrophils % (auto) 75.2 %; Platelet Count 168 K/uL (130-400); RDW Coefficient of Variation 12.9 % (11.5-14.5); Red Blood Count 4.11 M/uL (4.20-5.40); White Blood Count 10.15 K/ul (4.8-10.8)
[2023-11-16 07:56] LABS: BUN Creatinine Ratio 24.1 (10-20); Calcium 8.6 mg/dl (8.6-10.3); Creatinine Clr Calc Pharmacy 51.1 ml/min; Est GFR (African American) 57.2 ml/min; Est GFR (Non-African American) 49.4 ml/min; Potassium 4.1 mmol/L (3.5-5.1)
[2023-11-16] MEDS: PANTOprazole 40 MG TAB PO SCH (08:06)
[2023-11-16] MEDS: MULTIVITAMIN TAB PO SCH (08:06)
[2023-11-16] MEDS: dexAMETHasone 4 MG TAB PO SCH (08:06)
[2023-11-16] MEDS: hydroCHLOROthiazide 25 MG TAB PO SCH (08:06)
[2023-11-16] MEDS ORDERED: [UNRECOGNIZED DRUG - OTHER] PO SCH (09:00)
[2023-11-16] MEDS ORDERED: MULTIVIT MIN IRON FA HERB PO SCH (09:00)
[2023-11-16] MEDS: LANTUS PER UNIT CHARGE SC SCH (09:25)
[2023-11-16] MEDS: INFLUENZA VACCINE HIGH-DOSE (HD-IIV4) PF 65+ 0.7mL SYR IM ONE (10:44)
--- NOTE | 2023-11-20 07:40 | Discharge Summary ---
Date of Service November 20, 2023 Discharge Data Procedures Performed Operation Date: 11/15/23 08:50 Actual Procedures p Left Total Hip Arthroplasty(Left) - Gabriel Nunn MD Hospital Course (1) Status post left hip replacement: This is a 73 year old patient admitted on 11/15/23 and underwent total hip arthroplasty. She tolerated the procedure well and there were no complications. Transferred to the PACU post op and later to the orthopedic floor for further care. She was given ancef for antibiotic prophylaxis. She was also given LILI stockings, SCDs, and aspirin for DVT prophylaxis. Hemoglobin, hematocrit, and vital signs were monitored during her hospital stay and remained stable. Did not require any blood transfusions. There were no complications during her hospital stay. By post op day #1 the patient was tolerating a diabetic diet, pain was reasonably controlled with oral pain medicine, and she was participating in physical therapy. On post op day #1 the patient was discharged home and set up with home health care. She was given printed discharge instructions including prescriptions for extra strength tylenol, aspirin, ketorolac, zofran, senokot, and tramadol. Continue hip precautions. Continue physical therapy, weight bearing as tolerated. Continue LILI stockings. Follow up approximately 2 weeks post op or sooner if there are problems or concerns. Coding Level of Care Code None Diagnoses Status post left hip replacement Z96.642
== END 2023-11-16 11:42 | disposition home health service (06) ==
LOC: 3E 07:05 → ASU 07:05

== ENCOUNTER 2024-11-08 06:33 | Observation (INO) ==
--- NOTE | 2024-10-07 10:07 | PAT Medication Instructions ---
Medication Instructions Date of Service October 07, 2024 Home Medications cholecalciferol (vitamin D3) 25 mcg (1,000 unit) tablet (Vitamin D3) 25 mcg PO BID omeprazole 20 mg tablet,delayed release 20 mg PO QAM simvastatin 20 mg tablet 20 mg PO HS acetaminophen 500 mg tablet 1,000 mg PO BID PRN ammonium lactate 12 % topical cream 1 applic topical DAILY PRN aspirin 81 mg capsule 81 mg PO QAM clotrimazole-betamethasone 1 %-0.05 % topical cream 1 applic topical BID PRN donepezil 5 mg tablet (Aricept) 5 mg PO HS hydrochlorothiazide 25 mg tablet 25 mg PO QAM levothyroxine 125 mcg tablet 125 mcg PO QAM metformin 500 mg tablet 500 mg PO UD metoprolol succinate 50 mg tablet,extended release 24 hr 50 mg PO QPM nystatin 100,000 unit/gram topical powder 1 applic topical DAILY PRN Hair Growth 1 tab PO DAILY Prevagen 1 tab PO DAILY celecoxib 100 mg capsule 100 mg PO Q12H PRN cetirizine 10 mg capsule (Allergy Relief (cetirizine)) 10 mg PO QAM docusate sodium 100 mg capsule (Stool Softener) 100 mg PO DAILY ASK your surgeon for instructions celecoxib 100 mg capsule 100 mg PO Q12H PRN ASK your prescriber and surgeon aspirin 81 mg capsule 81 mg PO QAM STOP taking 2 weeks before surgery (or as soon as possible if surgery is within 2 weeks) Hair Growth 1 tab PO DAILY Prevagen 1 tab PO DAILY STOP taking 24 hours before surgery ammonium lactate 12 % topical cream 1 applic topical DAILY PRN clotrimazole-betamethasone 1 %-0.05 % topical cream 1 applic topical BID PRN nystatin 100,000 unit/gram topical powder 1 applic topical DAILY PRN DO NOT take the morning of surgery cholecalciferol (vitamin D3) 25 mcg (1,000 unit) tablet (Vitamin D3) 25 mcg PO BID hydrochlorothiazide 25 mg tablet 25 mg PO QAM metformin 500 mg tablet 500 mg PO UD cetirizine 10 mg capsule (Allergy Relief (cetirizine)) 10 mg PO QAM docusate sodium 100 mg capsule (Stool Softener) 100 mg PO DAILY Take morning of surgery With a small sip of water, OTHERWISE NOTHING TO EAT OR DRINK AFTER MIDNIGHT: omeprazole 20 mg tablet,delayed release 20 mg PO QAM acetaminophen 500 mg tablet 1,000 mg PO BID PRN(if needed) levothyroxine 125 mcg tablet 125 mcg PO QAM Take evening before surgery cholecalciferol (vitamin D3) 25 mcg (1,000 unit) tablet (Vitamin D3) 25 mcg PO BID simvastatin 20 mg tablet 20 mg PO HS acetaminophen 500 mg tablet 1,000 mg PO BID PRN(if needed) donepezil 5 mg tablet (Aricept) 5 mg PO HS metoprolol succinate 50 mg tablet,extended release 24 hr 50 mg PO QPM Other Notes If you have any questions please call us at [phone] or [phone] or [phone] or [phone]
--- NOTE | 2024-10-15 14:08 | Anesthesiology Consultation ---
Date of Service October 15, 2024 Assessment & Plan (1) Encounter for pre-operative examination: - Check BSG DOS - Infectious disease screening: Per assessment on 10/15/24- No known recent infectious disease contacts or current infectious disease symptoms. - Outpatient joint assessment: Pt currently scheduled for inpatient pathway. If surgeon requests review for outpatient joint pathway, patient is not recommended candidate for outpatient joint program from anesthesia standpoint based on available information. - Left JUANCHO (11/15/23): SAB at L4-5 (1 attempt) at [facility] - Family hx pseudocholinesterase deficiency (daughter) > OR made aware Chart Review Chart Review: Acceptable Risk for Surgery and Patient seen in Pre Admission Testing Teaching & Discussion Pre-Anesthesia Teaching/Discussion Notes: Instructed NPO after midnight before s urgery,except medications with 15 cc of water. Medication instructions provided according to the PAT guidelines. History Surgery Operation Date: 11/08/24 08:50 Proposed Procedures p Right Total Knee Arthroplasty - Gabriel Nunn MD Height/Weight Height: 5 ft 2.5 in Weight: 96 kg Allergies Allergy/AdvReac Type Severity Reaction Status Date / Time adhesive Allergy Mild Blisters, Verified 10/10/24 15:21 irritation Penicillins Allergy Mild Yeast Verified 10/10/24 15:21 infections Medications Home Medications Medication Instructions Recorded Confirmed Last Taken cholecalciferol (vitamin D3) 25 25 mcg PO BID ##0 03/06/17 10/04/24 2 Days Ago mcg (1,000 unit) tablet (Vitamin ~11/13/23 D3) omeprazole 20 mg tablet,delayed 20 mg PO QAM #0 caps 03/06/17 10/04/24 11/15/23 04:00 release simvastatin 20 mg tablet 20 mg PO HS #0 tabs 03/06/17 10/04/24 11/14/23 22:00 acetaminophen 500 mg tablet 1,000 mg PO BID PRN prn 10/26/23 10/04/24 11/14/23 07:00 ammonium lactate 12 % topical cream 1 applic topical DAILY PRN prn 10/26/23 10/04/24 2 Days Ago ~11/13/23 aspirin 81 mg capsule 81 mg PO QAM 10/26/23 10/04/24 11/15/23 04:00 clotrimazole-betamethasone 1 1 applic topical BID PRN prn 10/26/23 10/04/24 Unknown %-0.05 % topical cream donepezil 5 mg tablet (Aricept) 5 mg PO HS 10/26/23 10/04/24 11/14/23 22:00 hydrochlorothiazide 25 mg tablet 25 mg PO QAM 10/26/23 10/04/24 11/14/23 07:00 levothyroxine 125 mcg tablet 125 mcg PO QAM 10/26/23 10/04/24 11/15/23 04:00 metformin 500 mg tablet 500 mg PO UD 10/26/23 10/04/24 11/14/23 13:00 metoprolol succinate 50 mg 50 mg PO QPM 10/26/23 10/04/24 11/14/23 13:00 tablet,extended release 24 hr nystatin 100,000 unit/gram topical 1 applic topical DAILY PRN prn 10/26/23 10/04/24 2 Days Ago powder ~11/13/23 Hair Growth 1 tab PO DAILY 10/04/24 10/04/24 Unknown Prevagen 1 tab PO DAILY 10/04/24 10/04/24 Unknown celecoxib 100 mg capsule 100 mg PO Q12H PRN Back Pain 10/04/24 10/04/24 Unknown cetirizine 10 mg capsule (Allergy 10 mg PO QAM 10/04/24 10/04/24 Unknown Relief (cetirizine)) docusate sodium 100 mg capsule 100 mg PO DAILY 10/04/24 10/04/24 Unknown (Stool Softener) Past Medical History Medical History Acquired cystic kidney disease Allergic rhinitis Anxiety Depression GERD (gastroesophageal reflux disease) History of kidney stones x1, passed on own Hx MRSA infection (2013) S/P right hip replacement, treated > no issues since Hyperlipidemia Hypertension Hypothyroidism Memory changes Taking Aricept MCKENNA (nonalcoholic steatohepatitis) Neuropathy Pancreas cyst Prediabetes Taking Metformin Right knee DJD Sleep apnea Non-compliant with device, "can't use it" Exercise / Class Metabolic Activity III < 4 Walking/Shop/Light housework (one FS: No CP, + mild SOB) Past Surgical History Surgical History Family history of pseudocholinesterase deficiency Daughter Family history of reaction to anesthesia Daughter- pseudocholinesterase deficiency Mother- PONV H/O surgical removal of Bartholin’s gland cyst History of carpal tunnel release of both wrists History of cataract surgery R/L History of cholecystectomy (2016) History of esophagogastroduodenoscopy (EGD) History of resection of small bowel (1999) 1999 bowel obstruction History of surgery Vaginal repair/prolapsed bladder intervention per PCP records History of surgery of uterus Prolapse History of thyroidectomy, subtotal (2020) History of total hip arthroplasty (2012) Right History of total knee replacement (2016) Left History of total left hip arthroplasty Left JUANCHO (11/15/23): SAB at L4-5 (1 attempt) at [facility] Past Anesthesia History Pseudocholinesterase Deficiency (Family hx - daughter) * Mother- PONV History of PONV No Hx of PONV and No Hx of Motion Sickness Social History Smoking Status: Never smoker Do You Dip or Chew Tobacco: No Smoking End Date: Quit 1980 Hx Alcohol Use: No Hx Substance Use: No substance use type: does not use Review of Systems Chronic cough r/t sinus drainage/allergies at baseline. Recent PNA 09/2024 "resolved"/at baseline after abx treatment. Patient denies chest pain, shortness of breath, fever, chills, wheezing. Physical Exam Vital Signs BP 156/83 P 58 TEMP 97.8 SP02 95%RA RESP 16 Physical Full cervical extension range of motion. Full TMJ range of motion. TMD 3 finger breaths Mallampati Score III Dentition: upper full denture, 7 remaining on lower Lungs: clear throughout to auscultation Cardiac: regular rate and rhythm, no murmurs noted Spine: normal Carotid arteries: negative bruit Extremities: no LE edema Lab Results Anesthesia Preop Results Results Anesthesia Widget: WBC 5.17 K/ul (4.8-10.8) 10/15/24 Hgb 13.3 g/dl (12.0-16.0) 10/15/24 Hct 42.1 % (37.0-47.0) 10/15/24 Plt 153 K/uL (130-400) 10/15/24 Na 138 mmol/L (136-145) 10/15/24 K 4.2 mmol/L (3.5-5.1) 10/15/24 Cl 104 mmol/L (98-107) 10/15/24 CO2 29 mmol/L (21-32) 10/15/24 BUN 23 mg/dl (6-23) 10/15/24 Creat 1.07 mg/dl (0.6-1.2) 10/15/24 Glucose Level 84 mg/dl (70-99(Fasting)) 10/15/24 PT 11.1 Seconds (9.0-12.0) 10/15/24 PTT 26 Seconds (21-31) 10/15/24 INR 1.0 (0.9-1.1) 10/15/24 HA1c 6.2 % (4.5-5.6) H 10/15/24 Blood Type O Positive 10/15/24 Antibody Screen NEGATIVE 10/15/24 Testing Electrocardiogram Date: 10/15/24 SB at 57bpm. "Otherwise normal ECG" No significant change compared to 10/30/2023 per printer operator comparison. Chest X-Ray Date: 10/15/24 IMPRESSION: 1. Left lower linear opacities likely represent atelectatic changes/Epicardial fat pad (Unchanged compared to previous). 2. Elevation of the right hemidiaphragm (Unchanged compared to previous). Stress Test Date: 09/20/22 Pharmacologic Normal study No evidence of ischemia or infarction Low risk MPI
--- NOTE | 2024-10-28 17:58 | History & Physical Report ---
Date of Service October 28, 2024 Assessment & Plan (1) Right knee DJD: 74-year-old female status post bilateral hip replacements and left knee replacement in the past with advanced right knee arthritis. She is failed conservative treatment. She is happy with other joints and would like to have her right knee replaced. Plan: Mariaelena taken the operating room and do a right knee replacement but the risks Mente this procedure explained and she understands. Informed consent was obtained. Will likely use insulin for sliding scale insulin coverage to control her prediabetes. Use aspirin for DVT prophylaxis. She has been to be discharged to home with some home health. (2) Lumbar spondylosis: (3) History of total left hip arthroplasty: (4) History of total knee replacement: (5) Hypothyroidism: (6) Depression: (7) Hyperlipidemia: (8) Hypertension: (9) Sleep apnea: (10) Prediabetes: (11) GERD (gastroesophageal reflux disease): History of Present Illness Chief Complaint: . Right knee pain. Primary Care Provider: Lisseth Cooper PA-C . The patient is a 74-year-old female whose had a host of orthopedic issues over the years. She had a right hip replaced by Dr. Wolff in the past and then I did a left knee replacement on her 7 years ago and a hip replacement about 10 months ago. She recovered nicely from all these things. She continues to be limited by right knee pain discomfort. She has been through conservative care which did not help her much. The shots do not help much. Pain is mostly medial. It is increased with weightbearing and walking. She like to have her knee fixed. She is happy with her other joints. Allergies Allergy/AdvReac Type Severity Reaction Status Date / Time adhesive Allergy Mild Blisters, Verified 10/10/24 15:21 irritation Penicillins Allergy Mild Yeast Verified 10/10/24 15:21 infections Home Medications Medication Instructions Recorded Confirmed Type cholecalciferol (vitamin D3) 25 25 mcg PO BID ##0 03/06/17 10/04/24 History mcg (1,000 unit) tablet (Vitamin D3) omeprazole 20 mg tablet,delayed 20 mg PO QAM #0 caps 03/06/17 10/04/24 History release simvastatin 20 mg tablet 20 mg PO HS #0 tabs 03/06/17 10/04/24 History acetaminophen 500 mg tablet 1,000 mg PO BID PRN prn 10/26/23 10/04/24 History ammonium lactate 12 % topical cream 1 applic topical DAILY PRN prn 10/26/23 10/04/24 History aspirin 81 mg capsule 81 mg PO QAM 10/26/23 10/04/24 History clotrimazole-betamethasone 1 1 applic topical BID PRN prn 10/26/23 10/04/24 History %-0.05 % topical cream donepezil 5 mg tablet (Aricept) 5 mg PO HS 10/26/23 10/04/24 History hydrochlorothiazide 25 mg tablet 25 mg PO QAM 10/26/23 10/04/24 History levothyroxine 125 mcg tablet 125 mcg PO QAM 10/26/23 10/04/24 History metformin 500 mg tablet 500 mg PO UD 10/26/23 10/04/24 History metoprolol succinate 50 mg 50 mg PO QPM 10/26/23 10/04/24 History tablet,extended release 24 hr nystatin 100,000 unit/gram topical 1 applic topical DAILY PRN prn 10/26/23 10/04/24 History powder Hair Growth 1 tab PO DAILY 10/04/24 10/04/24 History Prevagen 1 tab PO DAILY 10/04/24 10/04/24 History celecoxib 100 mg capsule 100 mg PO Q12H PRN Back Pain 10/04/24 10/04/24 History cetirizine 10 mg capsule (Allergy 10 mg PO QAM 10/04/24 10/04/24 History Relief (cetirizine)) docusate sodium 100 mg capsule 100 mg PO DAILY 10/04/24 10/04/24 History (Stool Softener) Past Med/Surg History Problem List Right knee DJD Encounter for pre-operative examination Lumbar spondylosis Medical History Hx MRSA infection (2013) S/P right hip replacement, treated > no issues since Anxiety Memory changes Taking Aricept Right knee DJD Allergic rhinitis Neuropathy GERD (gastroesophageal reflux disease) MCKENNA (nonalcoholic steatohepatitis) Prediabetes Taking Metformin Pancreas cyst Acquired cystic kidney disease History of kidney stones x1, passed on own Hypothyroidism Depression Hyperlipidemia Hypertension Sleep apnea Non-compliant with device, "can't use it" Surgical History Family history of pseudocholinesterase deficiency Daughter Family history of reaction to anesthesia Daughter- pseudocholinesterase deficiency Mother- PONV History of esophagogastroduodenoscopy (EGD) History of total left hip arthroplasty Left JUANCHO (11/15/23): SAB at L4-5 (1 attempt) at [facility] H/O surgical removal of Bartholin’s gland cyst History of resection of small bowel (1999) 1999 bowel obstruction History of surgery Vaginal repair/prolapsed bladder intervention per PCP records History of surgery of uterus Prolapse History of carpal tunnel release of both wrists History of total hip arthroplasty (2012) Right History of total knee replacement (2016) Left History of cholecystectomy (2016) History of thyroidectomy, subtotal (2020) History of cataract surgery R/L Social History Smoking Status: Never smoker Tobacco Type: Cigarettes Second Hand Exposure: No; Do You Dip or Chew Tobacco: No; Hx Alcohol Use: No Hx Substance Use: No Preferred Language: Marshallese Communication Ability: Effective Riveter Helper Required: No Beliefs That Will Affect Care: None Current Living Situation: Spouse Feels Safe at Home: Yes Assistive Devices: Cane, Denture - Upper and Glasses Review of Systems All systems reviewed & are unremarkable except as noted in HPI & below. Physical Exam . Physical examination reveals a pleasant middle-age female. Looks to be in pretty good health. Examination both knees reveal patient ambulates independently. Examination of the right knee reveals varus alignment to her knee. She is tender with medial joint line. She got a little bit of bony hyper trophy. Range of motion 5-1 25. No instability. No pain with hip motion. Examination left knee reveals a well-healed incision. She got anatomic alignment to the knee. No swelling. Range of motion 0-1 25. No pain with hip motion. Constitutional WD/WN, vitals as above Respiratory normal respiratory effort, lungs clear to auscultation Cardiovascular RRR, no murmur, no edema Gastrointestinal (Abdomen) normal bowel sounds, soft, nontender, no hepatosplenomegaly Results & Data Results & Data Laboratory Results . Diagnostic Findings . X-rays of the right knee reveal advanced right knee medial compartment DJD. She got complete loss of medial joint space on the 40 degree flexion films. Osteophytes primarily medially. PG Care Time/CCT Total # of Minutes Spent Total Time Spent with Patient: Total time spent is greater than 50% in coordination of care (as documented) at patient's floor/unit and/or counseling patient: Coding Level of Care Code None Diagnoses Right knee DJD M17.11 Lumbar spondylosis M47.816 History of total left hip arthroplasty Z96.642 History of total knee replacement Z96.659 Hypothyroidism E03.9 Depression F32.A Hyperlipidemia E78.5 Hypertension I10 Sleep apnea G47.30 Prediabetes R73.03 GERD (gastroesophageal reflux disease) K21.9
--- NOTE | 2024-11-08 06:53 | History & Physical Bridge Note ---
Date of Service November 08, 2024 History & Physical Bridge Note I have examined the patient, reviewed the History & Physical and in the interval since the performance of the History & Physical I have noted the following changes of clinical significance: no changes noted
[2024-11-08] MEDS ORDERED: MIDAZOLAM HCL 1 MG/ML 2ML VIAL ONE (07:31)
[2024-11-08] MEDS: LR 60ML/HR IV SCH (07:32)
[2024-11-08] MEDS ORDERED: PROPOFOL IV EMULSION 10 MG/ML 20 ML VIAL IV ONE ×2 (07:38→10:23)
[2024-11-08] MEDS: LR 500ML BOLUS, THEN 15ML/HR IV SCH (07:40)
[2024-11-08] MEDS: FAMOTIDINE 20 MG TAB PO SCH (07:44)
[2024-11-08] MEDS: ACETAMINOPHEN 500 MG TAB PO SCH ×2 (07:44→15:19)
[2024-11-08] MEDS: METOCLOPRAMIDE HCL 10 MG TABLET PO SCH (07:44)
[2024-11-08] MEDS: dexAMETHasone**PF** 10 MG/ML VIAL IV SCH (07:44)
[2024-11-08] MEDS: CeleBREX 200 MG CAP PO SCH (07:44)
[2024-11-08] MEDS ORDERED: ROPIVACAINE 0.5% 5 MG/ML 30 ML VIAL ONE (08:20)
[2024-11-08] MEDS ORDERED: ATROPINE SULFATE 0.1 MG/ML 10ML SYR IV PRN (08:39)
[2024-11-08] MEDS ORDERED: HYDROmorphone INJ 1 MG/ML SYRINGE IV PRN (08:39)
[2024-11-08] MEDS ORDERED: fentaNYL citrate PF 100 MCG/2 ML VIAL IV PRN (08:39)
[2024-11-08] MEDS ORDERED: ONDANSETRON INJ 2 MG/ML 2 ML VIAL IV PRN ×2 (08:39→13:39)
[2024-11-08] MEDS ORDERED: ePHEDrine sulfate 50 MG/ML AMP IV PRN (08:39)
[2024-11-08] MEDS ORDERED: VANCOMYCIN CONSULT ACTIVE PRN (09:02)
[2024-11-08] MEDS: ceFAZolin 2000MG 2,000 MG/15 ML SYR IV SCH ×2 (09:20→18:05)
[2024-11-08] MEDS: VANCOMYCIN HCL 1,000 MG/270 ML BAG IV SCH (10:02)
[2024-11-08] MEDS: TRANEXAMIC ACID 1,000 MG **IV Intra-op IV SCH (10:13)
[2024-11-08] MEDS: ROPIV 0.5% 246mg, Ketorolac 30mg, EPINEPHrine 0.5mg in NSS INFIL SCH (10:13)
[2024-11-08] MEDS ORDERED: ONDANSETRON INJ 2 MG/ML 2 ML VIAL ONE (10:15)
--- NOTE | 2024-11-08 11:10 | Operative Report ---
PG Post Operative Report Pre & Post Diagnosis Operation Date: 11/08/24 08:50 Pre-Op Diagnosis: Right Knee Osteoarthritis Post-Op Diagnosis: Right Knee Osteoarthritis I identified the patient and participated in the time-out.: Yes Procedure Operation Date: 11/08/24 08:50 Actual Procedures p Right Total Knee Arthroplasty(Right) - Gabriel Nunn MD Surgeon Gabriel Nunn MD Utility System Repairer Fabian Valdez PA-C Estimated Blood Loss 50 Findings Consistent with Post-Op Diagnosis Operative findings revealed advanced right knee DJD. She had extensive grade 4 [id number] disease of the medial compartment with eburnation of the medial femoral condyle medial tibial plateau. She had a varus deformity to her knee. Moderate-sized joint effusion. Specimens Right knee sent for pathology. Anesthesia Type Spinal MAC Complications none Indications The patient is a 74-year-old female whose had a history of multiple orthopedic joint problems and arthritis is in the past. She is going through both hips and a previous left knee replacement. Over the past several years she has developed increased pain discomfort in her right knee. X-rays show advanced medial compartment arthritis. She failed conservative measures. She elected proceed with total knee arthroplasty. She did recently have a previous left knee replacement which is doing well. Description of Procedure Operative implants consist of: 1. Biomet Vanguard size 65 right posterior stabilized femoral component. 2. Biomet size 67 tibial tray. 3. 12 mm posterior stabilized polyethylene insert. 4. 28 x 8 all poly patella. The patient was taken the op room, identified, and placed on the operating table in the supine position. All conductors were appropriately padded. IV antibiotics fibra anesthesia team. A spinal anesthetic and adductor canal block had been Weida in the holding area. A Neil catheter was placed in sterile fashion. Right thigh tent was then placed in the right lower extremity was then prepped and draped in usual sterile fashion. The right leg was elevated and exsanguinated with use of an Esmarch and the turn was placed at 300 mmHg. An anterior approach of the right knee was then performed through a longitudinal incision centered over the patella. Sharp dissection was got through subcutaneous tissue down to the extensor mechanism. A medial parapatellar arthrotomy incision was made. Some subperiosteal dissecti on was carried out medially. The fat pad was resected beneath patella tendon. The lateral patellofemoral ligament was released. Patella subluxated laterally and the knee was flexed. The osteophytes were taken off distal femur. The ACL and PCL were then released from the distal femur and the tibia subluxated anteriorly. The external treatment LYMErix then placed on the interface the tibia and adjusted 14 mm medially. The proximal tibial cut was made made about a millimeter or 2 of bone off the medial side. Tibia sized to size 67. Attention was then drawn the femur. The distal femur was entered with a sharp drop with intramedullary canal was suction. A right 5 degree valgus cutting guide was placed. The distal femoral cutting block was pinned in place. Distal femoral cut was made take an additional 3 mm of bone off distal femur. The femur was then sized to a size 65. We downsized this almost an entire size due to the narrow medial and lateral dimensions of the femur. The AP cutting block was pinned parallel to the epicondylar axis which was 3 degrees of external rotation. The anterior cut, anterior chamfer, posterior cut, posterior chamfer cuts were made. The box cutting guide was placed and adjusted slightly lateral and the box cut was made. The knee was flexed. The remnants of the medial and lateral menisci were excised. The osteophytes taken off the posterior aspect the femur. Trial femoral component was placed. The tibial tray was then pinned in Elaine external rotation and the drill and stem punch were used. Defect in proximal tibia for the tibial tray. The knee was then trialed and the 10 mm insert seemed a little bit loose. This is particularly loose in extension. The 12 insert fit most appropriately. Attention drawn the patella. The patella was cleaned of all soft tissues. Patella thickness measured 20 mm in thickness was cut down to 13. Was sized to a size 28 patella. The lug holes were drilled for the 28 patella. The lateral osteophytes removed. Patella button was placed. Knee was taken through range of motion patella tracked nicely with no thumbs test. Attention was then drawn toward placement permanent components. Nupathe all trial components were removed. Bone plug was placed into this femur limit blood loss. A double batch Palacos G cement was mixed. A Biomet Vanguard size 65 right posterior stabilized femoral component, size 67 tibial tray, a 12 mm posterior stabilized polyethylene insert, and a 28 x 8 all poly patella then cemented in place. The knee was brought out into full extension till cement hardened. Final cement check was then performed. The pericapsular tissues were injected with a total of 100 cc of Ortho mix. The patient did receive 1 g tranexamic acid. The tourniquet was then let down for final tourniquet time of 54 minutes. Hemostasis assured use electrocautery. Extensor Meclomen then closed with combination 1 PDS suture #1 Vicryl suture in a [id number] fashion. Extensor Meclomen checked found be intact. Subcutaneous tissue then closed with 2 Dexon suture in a buried interrupted fashion and the skin was closed skin carmen. Leg was then cleaned and dried and a sterile dressing with Xeroform, 4 fours, sterile cast padding, Lalo bandage were applied. The patient was then transferred to the recovery room in stable condition. The patient tolerated the procedure well and there were no complications. Fabian Valdez, my physician reference assistant, was present for the entire procedure. His assistance was essential and required for appropriate patient positioning, prep ping and draping, surgical exposure, performing the technical details of the operation, placement the implants, closure of the wound, and placement of the sterile bandage. I attest to the content of the Intraoperative Record and any orders documented therein. Any exceptions are noted below.
--- NOTE | 2024-11-08 11:54 | XRay Report ---
XR knee RT 1 or 2V routine HISTORY: 74 years-old Female Surgical Post Op right knee arthroplasty COMPARISON: 08/08/2024 TECHNIQUE: 2 views of the right knee FINDINGS: Total joint arthroplasty with patellar resurfacing. No acute fracture or expected opaque foreign body . Arterial calcifications. Anterior midline skin carmen with expected postoperative soft tissue swel ling and deep tissue air. IMPRESSION: Total joint arthroplasty with expected postoperative changes. ACT 112: Negative or not required by law. The above report was generated using voice recognition software. It may contain grammatical, syntax o r spelling errors. Electronically signed by: Troy Perdue M.D. 11/08/2024 11:52 AM
[2024-11-08] MEDS ORDERED: HYDROmorphone INJ 0.5 MG/0.5 ML SYR IV PRN (13:39)
[2024-11-08] MEDS ORDERED: DEXTROSE 50% 50 ML SYRINGE IV PRN (13:39)
[2024-11-08] MEDS ORDERED: MAGNESIUM HYDROXIDE SUSP 30 ML UDC PO PRN (13:39)
[2024-11-08] MEDS ORDERED: GLUCOSE 10 TAB/TUBE PO PRN (13:39)
[2024-11-08] MEDS ORDERED: bisacodyL 10 MG SUPP PR PRN (13:39)
[2024-11-08] MEDS ORDERED: NALOXONE HCL 0.4 MG/1 ML VIAL/CARP IV PRN (13:39)
[2024-11-08] MEDS ORDERED: METOCLOPRAMIDE HCL INJ 5 MG/ML 2 ML VIAL IV PRN (13:39)
[2024-11-08] MEDS ORDERED: oxyCODONE HCL IR 5 MG TAB (IMMEDIATE RELEASE) PO PRN (13:39)
[2024-11-08] MEDS ORDERED: GLUCAGON FOR INJ 1 MG VIAL SQ PRN (13:39)
[2024-11-08] MEDS ORDERED: CARBOHYDRATES FOR HYPOGLYCEMIA PO PRN (13:39)
[2024-11-08] MEDS ORDERED: ALUMINUM/MAGNESIUM SUSP 30 ML UDC PO PRN (13:39)
[2024-11-08] MEDS ORDERED: GLUCOSE 40% GEL 15 GM TUBE PO PRN (13:39)
[2024-11-08] MEDS ORDERED: CLOTRIMAZOLE/BETAMETHASONE CR 15 GM TUBE EXT PRN (13:39)
[2024-11-08] MEDS ORDERED: PHARMACY GLYCEMIC MGMT CONSULT PRN (13:39)
[2024-11-08] MEDS ORDERED: NYSTATIN POWDER 15GM BTL EXT PRN (13:39)
[2024-11-08] MEDS: VANCOMYCIN HCL 1000MG/20ML VIAL ONE ×2 (13:54→13:55)
[2024-11-08] MEDS: ORTHO JOINT ANESTHETIC ONE (13:54)
--- NOTE | 2024-11-08 13:54 | Anesthesiology Progress Note ---
Date of Service November 08, 2024 Anesthesia Post Procedure Vital Signs Vital Signs: Temp Pulse Resp BP Pulse Ox O2 Del Method O2 Flow Rate 11/08/24 13:51 67 16 123/74 96 Room Air 11/08/24 13:41 36.5 C 72 16 146/76 H 96 Room Air 11/08/24 13:00 36.3 C L 75 20 121/69 97 Nasal Cannula 2 11/08/24 12:30 64 18 124/83 95 Room Air 11/08/24 12:15 59 L 18 122/64 94 Room Air 11/08/24 12:00 60 16 120/64 94 Room Air 11/08/24 11:45 68 18 130/63 92 Room Air 11/08/24 11:30 36.4 C L 65 21 129/70 96 Room Air 11/08/24 11:20 70 21 139/67 95 Room Air 11/08/24 11:10 65 16 136/68 98 Oxymask 3 11/08/24 11:00 36.2 C L 19 139/70 99 Oxymask 6 11/08/24 07:19 36.4 C L 60 20 138/74 97 Room Air Transfer of Care Handoff Completed per policy Notes Mental Status: alert / awake / arousable and participated in evaluation Patient Amnestic to Procedure: Yes Nausea / Vomiting: adequately controlled Pain: adequately controlled Airway Patency, RR, SpO2: stable & adequate BP & HR: stable & adequate Hydration State: stable & adequate Anesthetic Complications: no major complications apparent and Pt Satisfied with anesthetic care
[2024-11-08] MEDS ORDERED: AMMONIUM LACTATE 12% LOTION 225 GM BTL EXT PRN ×2 (14:03)
[2024-11-08] MEDS: KETOROLAC TROMETHAMINE 15 MG/ML VIAL IV SCH (14:21)
--- NOTE | 2024-11-08 14:41 | Pharmacy Report ---
Pharmacy Glycemic Short Note 2 - Date of Service November 08, 2024 - Glycemic Short BSG Results (Last 24 hours): 11/08/24 11/08/24 06:51 14:20 POC Glucose 92 202 H OUTPATIENT ANTIDIABETIC REGIMEN: * Metformin 500 mg PO BIDM HbA1c: 6.2% (10/15/24) ASSESSMENT: * BENITO is a 74 year old female POD #0 s/p right total knee arthroplasty * Received 10 mg IV dexamethasone in OR and is ordered 10 mg IV x 1 tomorrow AM * Well-controlled T2DM as an outpatient w/ metformin only * Fasting blood sugar of 92 mg/dL, but postop blood sugar of 202 mg/dL * Will give conservative basal dose w/ fairly aggressive Novolog parameters PLAN FOR INPATIENT GLYCEMIC CONTROL: * Hold outpatient oral diabetes medications * Basal insulin * Lantus 15 units SC x 1 * Reassess in AM * Bolus insulin * NovoLog per scale ACHS or Q6hrs while NPO * Goal Range: Low 110 mg/dL - High 140 mg/dL * Correction Factor: 20 mg/dL/unit * Nutritional / Prandial insulin per carb ratio of 1 unit per 7 grams CHO consumed
[2024-11-08] MEDS: INSULIN ASPART PER UNIT CHARGE SC SCH (15:19)
[2024-11-08] MEDS: LANTUS PER UNIT CHARGE SC ONE (15:20)
[2024-11-08] MEDS: ASCORBIC ACID 500 MG TAB PO SCH (16:06)
[2024-11-08] MEDS: TRANEXAMIC ACID / 0.7% NACL 1,000 MG/100 ML BAG IV SCH (16:08)
[2024-11-08] MEDS ORDERED: SENNA 8.6 MG TAB PO SCH (21:00)
[2024-11-08] MEDS: DOCUSATE SODIUM 100 MG CAP PO SCH (21:16)
[2024-11-08] MEDS: SENNA 8.6 MG TAB PO SCH (21:18)
[2024-11-08] MEDS: METOPROLOL SUCC 50MG EXT REL TAB PO SCH (21:18)
[2024-11-08] MEDS: SIMVASTATIN 20 MG TAB PO SCH (21:18)
[2024-11-08] MEDS: CHOLECALCIFEROL 25 MCG (1000 UNITS) TAB PO SCH (21:19)
[2024-11-08] MEDS: DONEPEZIL HCL 5 MG TAB PO SCH (21:19)
[2024-11-08] MEDS: ASPIRIN 81 MG ECTAB PO SCH (21:19)
[2024-11-09 03:18] VITALS: RESP 18
[2024-11-09] MEDS: LEVOTHYROXINE SODIUM 125 MCG TABLET PO SCH (05:38)
--- NOTE | 2024-11-09 07:40 | Orthopedic Progress Note ---
Date of Service November 09, 2024 Assessment & Plan (1) Status post right knee replacement: Plan: 74-year-old female postop day 1 from right knee replacement going for pretty well. Pains controlled. She is neurologically intact. Hoping to go home today. Plan: 1. DVT prophylaxis including thigh-high teds, SCDs, aspirin twice a day. 2. PT/OT. Weight-bear as tolerated. Right total knee protocol. 3. Pain control. Doing okay with current pain regimen. 4. Disposition. Plan is to discharge to home with some home health if she does okay in therapy today. Admission and Anticipated Discharge Date Admission Date: November 08, 2024 Subjective 74-year-old female postop day 1 from right knee replacement. She is doing pretty well. Had a pretty good night. Pains controlled. She is hoping to go home today. Physical Exam Physical Exam: Physical nation was a pleasant middle-age female. She is sitting up in her bedside chair reading. Examination of the right leg and knee reveals the dressing be clean dry and intact. She can dorsiflex and plantarflex her foot appropriately. She can do a straight leg raise with some effort. Respiratory: normal respiratory effort, lungs clear to auscultation Cardiovascular: RRR, no murmur, no edema Gastrointestinal (Abdomen): normal bowel sounds, soft, nontender, no hepatosplenomegaly Results & Data Vital Signs (Past 12 Hours) Vital Signs Temp Pulse Resp BP Pulse Ox O2 Del Method 11/09/24 07:13 36.6 C 57 L 18 172/83 H 99 Room Air 11/09/24 03:17 36.4 C L 61 18 117/63 95 Room Air 11/08/24 23:25 36.7 C 65 14 157/66 H 98 Room Air Laboratory Results Labs are pending.
[2024-11-09] MEDS: hydroCHLOROthiazide 25 MG TAB PO SCH (08:52)
[2024-11-09] MEDS: PANTOprazole 40 MG TAB PO SCH (08:52)
[2024-11-09] MEDS: MULTIVITAMIN TAB PO SCH (08:52)
[2024-11-09] MEDS: dexAMETHasone 10 MG in SYRINGE 0 ML IV SCH (08:52)
[2024-11-09] MEDS: CETIRIZINE HCL 10 MG TABLET PO SCH (08:52)
[2024-11-09] MEDS: LANTUS PER UNIT CHARGE SC ONE (08:57)
[2024-11-09] MEDS ORDERED: DOCUSATE SODIUM 100 MG CAP PO SCH (09:00)
[2024-11-09 10:02] LABS: BUN Creatinine Ratio 19.4 (10-20); Calcium 9.1 mg/dl (8.6-10.3); Creatinine Clr Calc Pharmacy 41.1 ml/min; Potassium 3.7 mmol/L (3.5-5.1)
[2024-11-09 10:03] LABS: Hematocrit (blood only) 39.4 % (37.0-47.0); Hemoglobin 12.6 g/dl (12.0-16.0); Mean Corpuscular Volume 81.2 fL (80.0-100.0); Mean Platelet Volume 9.7 fL (9.4-12.4); Platelet Count 187 K/uL (130-400); RDW Coefficient of Variation 13.8 % (11.5-14.5); RDW Standard Deviation 40.5 fL (36.4-46.3); Red Blood Count 4.85 M/uL (4.20-5.40); White Blood Count 10.95 K/ul (4.8-10.8)
[2024-11-09 11:10] VITALS: BP 155/70; PULSE 62; TEMP 98.1; O2SAT 93
--- NOTE | 2024-11-14 08:27 | Discharge Summary ---
Date of Service November 14, 2024 Admission HPI (Per Admitting) . The patient is a 74-year-old female whose had a host of orthopedic issues over the years. She had a right hip replaced by Dr. Wolff in the past and then I did a left knee replacement on her 7 years ago and a hip replacement about 10 months ago. She recovered nicely from all these things. She continues to be limited by right knee pain discomfort. She has been through conservative care which did not help her much. The shots do not help much. Pain is mostly medial. It is increased with weightbearing and walking. She like to have her knee fixed. She is happy with her other joints. Admission Exam (Per Admitting) . Physical examination reveals a pleasant middle-age female. Looks to be in pretty good health. Examination both knees reveal patient ambulates independently. Examination of the right knee reveals varus alignment to her knee. She is tender with medial joint line. She got a little bit of bony hypertrophy. Range of motion 5-1 25. No instability. No pain with hip motion. Examination left knee reveals a well-healed incision. She got anatomic alignment to the knee. No swelling. Range of motion 0-1 25. No pain with hip motion. Principal Diagnosis Same as "Discharge Diagnosis" noted below under Discharge Instructions. Discharge Data Procedures Performed Operation Date: 11/08/24 08:50 Actual Procedures p Right Total Knee Arthroplasty(Right) - Gabriel Nunn MD Ordered Studies 11/08/24 05:00 US - OR guided needle placemen Routine Hospital Course (1) Status post right knee replacement: This is a 74 year old patient admitted on 11/08/24 and underwent total knee arthroplasty. She tolerated the procedure well and there were no complications. Transferred to the PACU post op and later to the orthopedic floor for further care. She was given ancef for antibiotic prophylaxis. She was also given LILI stockings, SCDs, and aspirin for DVT prophylaxis. Hemoglobin, hematocrit, and vital signs were monitored during her hospital stay and remained stable. Did not require any blood transfusions. There were no complications during her hospital stay. By post op day #1 the patient was tolerating a diabetic diet, pain was reasonably controlled with oral pain medicine, and she was participating in physical therapy. On post op day #1 the patient was discharged home and set up with home health care. She was given printed discharge instructions including prescriptions for extra strength tylenol, aspirin, ketorolac, zofran, oxycodone, and senokot. Continue physical therapy, weight bearing as tolerated. Continue LILI stockings. Follow up approximately 2 weeks post op or sooner if there are problems or concerns. Discharge Plan Discharge Items Patient Disposition: Home - Home Health Services Reason For Visit: Right Knee Osteoarthritis Discharge Diagnosis: Right Knee Replacement Activity: Per Instructions section Weightbearing: Full weightbearing Non-emergency contact: Surgeon Call non-emergency contact if: you have any medication questions Follow-up/Referrals: Lisseth Cooper PA-C [Primary Care Provider] - Diet: Carb Consistent or DM2 Addtl Attending Provider Instructions: ACTIVITY RECOMMENDATIONS: Diet: * You may resume previous diet. Physical Therapy: * You will go to physical therapy three times each week for four to six weeks after your surgery in order to regain your knee range of motion and to retrain your knee to work properly. * It is just as important to make sure you are getting your knee perfectly straight as it is to regain your knee bend. * Taking a pain pill an hour before therapy can help you have a more productive and comfortable therapy session. Home Exercise: * You were shown a series of exercises (heel props, heel slides, etc.) in the hospital. Do these exercises three to four times each day including the exercises you were shown in physical therapy. Walking: * Get up and walk several times each day. For the first four weeks, try not to stand or walk for more than one hour at a time. If you do stand or walk for more than one hour, you will not hurt anything, but your knee and leg will likely swell. * As you feel comfortable, you may change from the walker or crutches to a cane and then to independent walking. MEDICATIONS: New Medicine: * You will likely be taking one or more of these medications: 1. Oxycodone - A quick and shorter-acting pain medication. Take one to two tablets every six hours to lessen your pain. 2. Aspirin - Thins your blood to lessen the chance of forming a blood clot. * The most common side effects of pain medicine and iron are nausea and constipation. If nausea or constipation is too much of a problem or if you have any questions about your new medicines or doses, call [facility] at . We will try to help you manage these issues. "VERY IMPORTANT TO READ AND REVIEW" Pain: * The immediate post-operative period after knee replacement surgery is often quite painful. * You are given a prescription for pain medicine. You should take it, as directed, when you need it, especially before physical therapy and before going to bed. Pain that interferes with sleep is very common and can last several months. * You will likely need pain medicine for the first four to six weeks. It will not stop all of the pain. The pain will lessen and as you feel better, you may change to milder pain medicine such as Tylenol. * The most common side effects of pain medicine are nausea and constipation, so don't take more than you need. SPECIAL CARE INSTRUCTIONS: TEDs/Elastic Stockings: * The white elastic stockings help limit swelling and prevent blood clots from forming in your legs. The more you wear them, the more they work. * Wear them for six weeks after knee replacement surgery and four weeks after partial knee replacement. Incision Site Care: * Remove dressing postoperative day 2 and then shower. Keep direct shower pressure off the incision site. * After showering, cover carmen with dry gauze and change daily or more frequently if the dressing is getting saturated with drainage. * Use the LILI stockings to hold dressing in place. DO NOT apply tape on the skin. * May completely stop using bandage if wound is dry and no drainage * Carmen are removed between 2 and 3 weeks post-op. If your follow-up appointment is made before 2 weeks, please have your appointment re- scheduled. It is too early to remove the carmen. Prevention of Infection: * Take antibiotics one hour before any dental cleaning, dental work, urological procedure, gastrointestinal procedure or any invasive surgery in order to prevent your new joint from getting infected. * You may get the antibiotics from the doctor performing the procedure or you may call our office at [phone] before and we will call in a prescription to the pharmacy of your choice. Things to Watch For: * Drainage from the incision site that occurs more than one week after your surgery. * Severely increased knee/leg pain or swelling. * Increased redness at the incision site. * Fever above 102 degrees Fahrenheit. * Unusual chest pain or shortness of breath. * Unusual pain or burning with urination. Call [facility] at [phone] with any of the above problems or if you have any questions about your medicines or recovery. FOLLOW UP VISIT: Make an appointment to see your doctor for approximately two weeks after surgery for a progress check and staple removal by calling the office at [phone]. Pending Studies at Discharge: No Stand-Alone Forms: My [facility], Smoking Cessation Medications and DC Order Prescriptions: Continued simvastatin 20 mg Tablet 20 mg PO HS Qty: 0 cholecalciferol (vitamin D3) [Vitamin D3] 25 mcg (1,000 unit) Tablet 25 mcg PO BID Qty: 0 omeprazole 20 mg Tablet,Delayed Release (Dr/Ec) 20 mg PO QAM Qty: 0 oxycodone 5 mg tablet 5 - 10 mg PO Q8H PRN (Reason: pain) Qty: 40 0RF Rx Instructions: Take as needed for pain. Do not take more than 6 tablets per day. ondansetron 4 mg tablet,disintegrating 4 mg PO Q8 PRN (Reason: nausea) Qty: 20 1RF Rx Instructions: Take as needed for nausea sennosides [Senokot] 8.6 mg tablet 8.6 mg PO BID 14 Days Qty: 28 0RF Rx Instructions: Take two times a day to prevent/treat constipation acetaminophen [Tylenol Extra Strength] 500 mg tablet 1,000 mg PO TID 30 Days Qty: 180 0RF Rx Instructions: Take 3 times per day to lessen pain. aspirin [Sharan Low Dose Aspirin] 81 mg tablet,delayed release (DR/EC) 81 mg PO BID 45 Days Qty: 90 0RF Rx Instructions: Take to prevent blood clots. metoprolol succinate 50 mg Tablet Extended Release 24 Hr 50 mg PO QPM acetaminophen 500 mg Tablet 1,000 mg PO BID MDD pain PRN (Reason: prn) aspirin 81 mg Capsule 81 mg PO QAM hydrochlorothiazide 25 mg Tablet 25 mg PO QAM levothyroxine 125 mcg Tablet 125 mcg PO QAM metformin 500 mg Tablet 500 mg PO UD Rx Instructions: 500 mg every AM and 500 mg every other evening donepezil [Aricept] 5 mg Tablet 5 mg PO HS ammonium lactate 12 % Cream 1 applic TOPICAL DAILY MDD feet PRN (Reason: prn) nystatin 100,000 unit/gram Powder 1 applic TOPICAL DAILY PRN (Reason: prn) clotrimazole-betamethasone 1-0.05 % Cream 1 applic TOPICAL BID MDD rash PRN (Reason: prn) docusate sodium [Stool Softener] 100 mg Capsule 100 mg PO DAILY celecoxib 100 mg capsule 100 mg PO Q12H PRN (Reason: Back Pain) Allergy Relief (cetirizine) 10 mg Capsule 10 mg PO QAM ketorolac 10 mg tablet 10 mg PO QID Rx Instructions: Take 4 times per day with food for 5 days to lessen pain and swelling. Admission Data Admit Date/Time: 11/08/24 11:02 Attending Provider: Gabriel Nunn Admit Provider: Gabriel Nunn Primary Care Provider: Lisseth Cooper Other Providers: [facility],Home Healthcare; [facility],Home Health Other Interventions: Discharge Summary Assessment (RN) Last Done: 11/09/24 09:20
== END 2024-11-09 12:30 | disposition home health service (06) ==
LOC: ASU 06:33 → PACUINP 06:33 → 3N 13:42
DX: F32.A Depression, unspecified; E78.5 Hyperlipidemia, unspecified; E03.9 Hypothyroidism, unspecified; Z79.82 Long term (current) use of aspirin; K75.81 Nonalcoholic steatohepatitis (NASH); Z79.890 Hormone replacement therapy; Z79.84 Long term (current) use of oral hypoglycemic drugs; M25.461 Effusion, right knee; M47.816 Spondylosis without myelopathy or radiculopathy, lumbar region; Z91.09 Other allergy status, other than to drugs and biological substances; M21.161 Varus deformity, not elsewhere classified, right knee; G47.33 Obstructive sleep apnea (adult) (pediatric); K21.9 Gastro-esophageal reflux disease without esophagitis; Z88.2 Allergy status to sulfonamides; I10 Essential (primary) hypertension; M17.11 Unilateral primary osteoarthritis, right knee; M25.761 Osteophyte, right knee; Z79.899 Other long term (current) drug therapy; R73.03 Prediabetes; Z96.642 Presence of left artificial hip joint; Z88.0 Allergy status to penicillin